=== PATIENT | female | born 1955 | race African-American/Black ===

== ENCOUNTER 2016-07-07 11:58 | Outpatient (CLI) | payer MEDICARE, MEDICAID ==
[2016-07-07] MEDS ORDERED: IOPAMIDOL-300 100 ML VIAL IVP ONE (14:46)
== END 2016-07-07 11:59 | disposition home or self-care (01) ==
DX: R16.1 Splenomegaly, not elsewhere classified (principal); J90 Pleural effusion, not elsewhere classified; K44.9 Diaphragmatic hernia without obstruction or gangrene; R51 Headache
CPT/HCPCS: 74178; Q9967

== ENCOUNTER 2016-08-25 | Outpatient (CLI) | payer MEDICARE, MEDICAID | END 2016-08-25 08:30 | disposition home or self-care (01) | DX: R06.00 Dyspnea, unspecified (principal) ==

== ENCOUNTER 2016-08-25 08:47 | Outpatient (CLI) | payer MEDICARE, MEDICAID | END 2016-08-25 08:48 | disposition home or self-care (01) | DX: Z53.9 Procedure and treatment not carried out, unspecified reason (principal) ==

== ENCOUNTER 2016-08-26 10:34 | Outpatient (CLI) | payer MEDICARE, MEDICAID | END 2016-08-26 10:35 | disposition home or self-care (01) | DX: I51.7 Cardiomegaly (principal); J90 Pleural effusion, not elsewhere classified ==

== ENCOUNTER 2016-09-27 14:45 | Outpatient (CLI) | payer MEDICARE, MEDICAID | END 2016-09-27 14:46 | disposition home or self-care (01) | DX: E78.5 Hyperlipidemia, unspecified (principal); E11.9 Type 2 diabetes mellitus without complications ==

== ENCOUNTER 2016-11-01 08:45 | Outpatient (CLI) | payer MEDICARE, MEDICAID | END 2016-11-01 09:00 | disposition home or self-care (01) | DX: R00.2 Palpitations (principal) ==

== ENCOUNTER 2016-11-01 09:29 | Outpatient (CLI) | payer MEDICARE, MEDICAID | END 2016-11-01 09:30 | disposition short-term general hospital (02) | DX: R07.9 Chest pain, unspecified (principal) | CPT/HCPCS: A0425; A0429 ==

== ENCOUNTER 2016-11-25 14:06 | Outpatient (CLI) | payer MEDICARE, MEDICAID ==
--- NOTE | 2016-11-26 14:54 | XRAY Report ---
EXAM: CHEST RADIOGRAPHY EXAM DATE: 11/25/2016 02:22 PM. CLINICAL HISTORY: Right-sided chest pain. COMPARISON: 10/22/2015. TECHNIQUE: 2 views. FINDINGS: Lungs/Pleura: Interval development of mild central congestion with small left effusion. Mediastinum: Heart and mediastinal contours are unremarkable. Other: None. IMPRESSION: Mild central congestion with small left effusion, new since 10/22/2015. [facility] Referring Provider Line: [phone] SITE ID: [id number]
--- NOTE | 2016-11-26 14:56 | XRAY Report ---
EXAM: ABDOMEN RADIOGRAPHY EXAM DATE: 11/25/2016 02:29 PM. CLINICAL HISTORY: Abdominal pain. COMPARISON: CT scan from 06/09/2014. TECHNIQUE: 1 view. FINDINGS: Bowel Gas Pattern: Within normal limits. No dilated loops. Other: None. IMPRESSION: Unremarkable exam. [facility] Referring Provider Line: [phone] SITE ID: [id number]
== END 2016-11-25 14:07 | disposition home or self-care (01) ==
LOC: DI.N 14:06
PROVIDERS: ATTEND Physician Assistant
DX: R09.89 Other specified symptoms and signs involving the circulatory and respiratory systems (principal); J90 Pleural effusion, not elsewhere classified
CPT/HCPCS: 71020; 74000

== ENCOUNTER 2016-12-08 14:02 | Outpatient (CLI) | payer MEDICARE, MEDICAID ==
--- NOTE | 2016-12-09 09:09 | XRAY Report ---
TWO-VIEW CHEST: 12/08/2016 CLINICAL INDICATION: Pleural effusion. COMPARISON: 11/25/2016 FINDINGS: Frontal and lateral views of the chest demonstrate stable cardiomegaly. Pulmonary vascula r congestion appears stable. Small left effusion is again seen. No pneumothorax. IMPRESSION: STABLE CHANGES OF MILD CONGESTIVE FAILURE. JOB #: [id number] EXT JOB #:[id number]
== END 2016-12-08 14:03 | disposition home or self-care (01) ==
LOC: DI.N 14:02
PROVIDERS: ATTEND Physician Assistant
DX: R09.89 Other specified symptoms and signs involving the circulatory and respiratory systems (principal); J90 Pleural effusion, not elsewhere classified
CPT/HCPCS: 71020

== ENCOUNTER 2016-12-15 10:42 | Outpatient (CLI) | payer MEDICARE, MEDICAID ==
[2016-12-15 11:23] LABS: CREATININE 7.5 mg/dL (0.4-1.0)
[2016-12-15] MEDS ORDERED: IOPAMIDOL-300 100 ML VIAL IVP ONE (12:09)
--- NOTE | 2016-12-15 16:11 | CT Report ---
CT CHEST WITH CONTRAST: 12/15/2016 CLINICAL INDICATION: Multiple splenic tumors, question primary lung cancer. Axial CT images of the chest were obtained with 100 mL Isovue-300 intravenously. In accordance with CT protocol optimization, one or more of the following dose reduction techniques w ere utilized for this exam: automated exposure control, adjustment of mA and/or KV based on patient size, or use of iterative reconstructive technique. COMPARISON: CT chest 06/09/2014. The heart and great vessels demonstrate mild atherosclerotic calcifications. Calcified mediastinal a nd hilar lymph nodes are present, compatible with old granulomatous disease. Trace left pleural effu jose daniel is present. No suspicious pulmonary nodule or mass lesion is seen. Changes of old granulomatou s disease is noted in the left lung. Osseous structures demonstrate degenerative changes. Limited evaluation of upper abdominal structures demonstrate multiple splenic lesions and normal adre nal glands. IMPRESSION: CHANGES OF OLD GRANULOMATOUS DISEASE. TRACE LEFT PLEURAL EFFUSION. NO SUSPICIOUS PULMO NARY NODULE OR MASS LESION. JOB #: [id number] EXT JOB #:[id number]
== END 2016-12-15 10:43 | disposition home or self-care (01) ==
LOC: LAB 10:42
PROVIDERS: ATTEND Internal Medicine Nephrology
DX: J90 Pleural effusion, not elsewhere classified (principal)
CPT/HCPCS: 36415; 71260; 82565; Q9967

== ENCOUNTER 2016-12-21 13:41 | Outpatient (CLI) | payer MEDICARE, MEDICAID ==
--- NOTE | 2016-12-22 15:52 | XRAY Report ---
CHEST, PA AND LATERAL: 12/21/2016 CLINICAL HISTORY: Pleural effusion. CLINICAL HISTORY: Pleural effusion. COMPARISON: Chest CT dated 12/15/2016. FINDINGS: Bony thorax is normal. Mild cardiomegaly is noted. Thoracic aorta is normal. Mediastinum is not widened. Pulmonary parenc hyma demonstrates mild prominence of the upper lobe pulmonary vasculature with minimal interstitial p arenchymal disease seen in the right lower lobe. Combination of findings raise concern in regard to pulmonary venous congestion/minimal congestive heart failure. Secondary consideration is minimal bro nchopneumonia. Few minor granulomatous calcifications are seen in the lung knowles. IMPRESSION: 1. MILD CARDIOMEGALY WITH SUGGESTION OF MILD PULMONARY VENOUS CONGESTION/EARLY CONGESTIVE HEART FAIL URE. SECONDARY CONSIDERATION IS MINIMAL BRONCHOPNEUMONIA. 2. MINIMAL EVIDENCE OF OLD GRANULOMATOUS DISEASE. 3. EXAMINATION IS NEGATIVE FOR PLEURAL EFFUSION. SMALL PLEURAL EFFUSIONS MAY NOT BE DEMONSTRABLE ON ROUTINE UPRIGHT PA CHEST X-RAY. IF THIS IS STILL A STRONG CLINICAL CONCERN, A LEFT CHEST ULTRASOUND COULD BE OBTAINED FOR FURTHER EVALUATION. JOB #: [id number] EXT JOB #:[id number]
== END 2016-12-21 13:42 | disposition home or self-care (01) ==
LOC: DI.N 13:41
PROVIDERS: ATTEND Physician Assistant
DX: I51.7 Cardiomegaly (principal)
CPT/HCPCS: 71020

== ENCOUNTER 2017-01-26 07:55 | Outpatient (CLI) | payer MEDICARE, MEDICAID ==
[2017-01-26 12:53] LABS: CHOLESTEROL 98 mg/dL; HDL CHOLESTEROL 48 mg/dL; LDL/HDL RATIO 0.6 (<4.4); TRIGLYCERIDES 104 mg/dL; VLDL CHOLESTEROL 21 mg/dL
== END 2017-01-26 07:56 | disposition home or self-care (01) ==
LOC: LAB.N 07:55
PROVIDERS: ATTEND Internal Medicine Cardiovascular Disease
DX: R06.02 Shortness of breath (principal); E78.00 Pure hypercholesterolemia, unspecified; I12.0 Hypertensive chronic kidney disease with stage 5 chronic kidney disease or end stage renal disease; N18.6 End stage renal disease; J90 Pleural effusion, not elsewhere classified; B19.20 Unspecified viral hepatitis C without hepatic coma
CPT/HCPCS: 36415; 80061

== ENCOUNTER 2017-03-09 11:38 | Outpatient (CLI) | payer MEDICARE, MEDICAID | END 2017-03-09 11:39 | disposition short-term general hospital (02) | LOC: EMS 11:38 | PROVIDERS: ATTEND Surgery | DX: R11.0 Nausea (principal); R51 Headache; R03.0 Elevated blood-pressure reading, without diagnosis of hypertension; Z99.2 Dependence on renal dialysis | CPT/HCPCS: A0425; A0429 ==

== ENCOUNTER 2017-08-10 08:02 | Outpatient (CLI) | payer MEDICARE, MEDICAID ==
[2017-08-10 13:25] LABS: BASOPHILS % (AUTO) 0.4 %; EOSINOPHILS # (AUTO) 0.1 10^3/uL (0.0-0.7); EOSINOPHILS % (AUTO) 1.5 %; HGB - HEMOGLOBIN 9.9 g/dL (12.0-16.0); LYMPHOCYTES # (AUTO) 0.9 10^3/uL (1.5-3.5); LYMPHOCYTES % (AUTO) 17.6 %; MEAN CORPUSCULAR HEMOGLOBIN 33.7 pg (27.0-31.0); MEAN CORPUSCULAR HGB CONC 34.4 g/dL (32.0-36.0); MEAN CORPUSCULAR VOLUME 98.1 fL (81.0-99.0); MEAN PLATELET VOLUME 9.3 fL (7.9-10.8); MONOCYTES # (AUTO) 0.4 10^3/uL (0.0-1.0); NEUTROPHILS # (AUTO) 3.6 10^3/uL (1.5-6.6); NEUTROPHILS % (AUTO) 72.5 %; PLT - PLATELET COUNT 76 10^3/uL (130-450); RED BLOOD COUNT 2.93 10^6/uL (4.20-5.40); RED CELL DISTRIBUTION WIDTH 15.9 % (12.0-15.0)
[2017-08-10 13:42] LABS: ALBUMIN 3.5 g/dL (3.2-5.5); ALBUMIN/GLOBULIN RATIO 0.8 (1.0-2.2); ALKALINE PHOSPHATASE 100 IU/L (42-121); ALT ALANINE AMINOTRANSFERASE 17 IU/L (10-60); AST ASPARTATE AMINOTRANSFERASE 20 IU/L (10-42); BILIRUBIN,TOTAL 0.7 mg/dL (0.2-1.0); BUN - BLOOD UREA NITROGEN 30 mg/dL (6-20); CALCIUM 8.8 mg/dL (8.5-10.3); CARBON DIOXIDE - CO2 29 mmol/L (21-32); CHLORIDE 98 mmol/L (101-111); CHOL/HDL RATIO 2.1 (<4.4); CHOLESTEROL 97 mg/dL; CREATININE 6.9 mg/dL (0.4-1.0); GFR - MDRD 7 (>89); GLUCOSE 159 mg/dL (70-100); HDL CHOLESTEROL 47 mg/dL; LDL CHOLESTEROL,CALCULATED 34 mg/dL; LDL/HDL RATIO 0.7 (<4.4); SODIUM 136 mmol/L (135-145); TOTAL PROTEIN 8.1 g/dL (6.7-8.2); VLDL CHOLESTEROL 16 mg/dL
[2017-08-10 14:32] LABS: HB2 TOTAL 10.2 g/dL; HEMOGLOBIN A1C 0.57 g/dL; HEMOGLOBIN A1C % 7.3 % (4.6-6.2)
== END 2017-08-10 08:03 ==
LOC: LAB.N 08:02
PROVIDERS: ATTEND Family Medicine
DX: E11.9 Type 2 diabetes mellitus without complications (principal); B19.20 Unspecified viral hepatitis C without hepatic coma; I10 Essential (primary) hypertension
CPT/HCPCS: 36415; 80053; 80061; 83036; 83721; 84443; 85025; 87522

== ENCOUNTER 2017-09-08 13:53 | Outpatient (CLI) | payer MEDICARE, MEDICAID ==
--- NOTE | 2017-09-08 15:01 | XRAY Report ---
TWO VIEW CHEST: 09/08/2017 CLINICAL INDICATION: End-stage renal disease. COMPARISON: 12/21/2016. FINDINGS: Frontal and lateral views of the chest demonstrate an enlarged cardiac silhouette. The lungs are clear. No effusion or pneumothorax is present. IMPRESSION: CARDIOMEGALY, BUT NO EVIDENCE OF ACUTE CARDIOPULMONARY DISEASE. NO EVIDENCE OF ACTIVE TUBERCULOSIS. TD: 09/08/2017 15:00
== END 2017-09-08 13:54 | disposition home or self-care (01) ==
LOC: DI 13:53
PROVIDERS: ATTEND Internal Medicine Nephrology
DX: N18.6 End stage renal disease (principal); I51.7 Cardiomegaly
CPT/HCPCS: 71046

== ENCOUNTER 2017-10-30 11:43 | Outpatient (CLI) | payer MEDICARE, MEDICAID | END 2017-10-30 11:44 | disposition critical access hospital (66) | LOC: EMS 11:43 | PROVIDERS: ATTEND Surgery | DX: T82.838A Hemorrhage due to vascular prosthetic devices, implants and grafts, initial encounter (principal) | CPT/HCPCS: A0425; A0429 ==

== ENCOUNTER 2017-10-30 12:04 | Emergency (ER) | payer MEDICARE, MEDICAID ==
--- NOTE | 2017-10-30 12:45 | ED Physician Documentation ---
History of Present Illness - Stated complaint Stated Complaint: BLEEDING FISTULA - Chief complaint Chief Complaint: Laceration - History obtained from History obtained from: Patient - History of Present Illness Timing: Today Pain level max: 0 Pain level now: 0 Improved by: clamping Worsened by: nothing - Additonal information Additional information: bleeding fistula after dialysis today. Clamp applied. No further bleeding. 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 - Present Medications Home Medications: Ambulatory Orders Medication Instructions Recorded Confirmed Furosemide [Lasix] 80 mg PO BID 11/17/12 07/31/17 Omeprazole 40 mg PO DAILY 11/17/12 07/31/17 Amlodipine Besylate 10 mg PO BID 10/30/13 07/31/17 Carvedilol 25 mg PO DAILY 10/30/13 07/31/17 Metoclopramide [Reglan] 5 mg PO Q6H PRN 10/30/13 07/31/17 Pravastatin Sodium 20 mg PO HS 10/30/13 07/31/17 Sevelamer Carbonate [Renvela] 2,400 mg PO TID 10/30/13 07/31/17 Vit B Cmplx 3/FA/Vit C/Biotin 1 each PO DAILY 10/30/13 07/31/17 [Shalini-Garcia Rx Tablet] Cinacalcet HCl [Sensipar] 30 mg PO DAILY 12/16/14 07/31/17 Famotidine 20 mg PO DAILY 12/16/14 07/31/17 Ipratropium [place] [Atrovent Hfa] 12.9 gm IH QID 01/24/17 07/31/17 Minoxidil 5 mg PO DAILY PRN 01/24/17 07/31/17 - Allergies Allergies/Adverse Reactions: Allergies Allergy/AdvReac Type Severity Reaction Status Date / Time yellow dye Allergy Unknown Headache Verified 06/09/14 21:02 - Social History Does the pt smoke?: No Smoking Status: Never smoker Does the pt drink ETOH?: No Does the pt have substance abuse?: No - Immunizations Immunizations are current?: Yes - POLST Patient has POLST: No PD ED PE NORMAL - Vitals Vital signs reviewed: Yes - General General: Alert and oriented X 3, No acute distress - Derm Derm: Warm and dry - Extremities Extremities: Other (L arm fistula with clamp in place. No active bleeding.) - Neuro Neuro: Alert and oriented X 3 Results - Vitals Vitals: Vital Signs - 24 hr 10/30/17 12:08 Temperature 36.3 C L Heart Rate 71 Respiratory 16 Rate Blood Pressure 205/84 H O2 Saturation 100 Oxygen O2 Source Simple Mask PD MEDICAL DECISION MAKING - ED course Complexity details: re-evaluated patient, considered differential, d/w patient ED course: Patient is a 62-year-old female who presents to the emergency department with a left AV fistula bleeding after dialysis. Resolved with clamping. No further bleeding in the emergency department. We will have her follow-up with her PCP for further care as needed. This document was made in part using voice recognition software. While efforts are made to proofread this document, sound alike and grammatical errors may occur. Departure - Departure Disposition: 01 Home, Self Care Clinical Impression: Hemorrhage of arteriovenous fistula Qualifiers: Encounter type: initial encounter Qualified Code(s): T82.838A - Hemorrhage due to vascular prosthetic devices, implants and grafts, initial encounter Condition: Good Instructions: ED Shunt Dialysis Fistula Bleeding Follow-Up: your,doctor as needed [Other] Comments: Return if you worsen.
[2017-10-30 13:02] VITALS: BP 211/86
== END 2017-10-30 13:08 | disposition home or self-care (01) ==
LOC: EDUNIT# → ED 12:04
DX: T82.838A Hemorrhage due to vascular prosthetic devices, implants and grafts, initial encounter (principal); I11.0 Hypertensive heart disease with heart failure; I50.9 Heart failure, unspecified; E78.00 Pure hypercholesterolemia, unspecified; E11.9 Type 2 diabetes mellitus without complications; Z99.2 Dependence on renal dialysis
CPT/HCPCS: 99283

== ENCOUNTER 2017-12-14 08:02 | Outpatient (CLI) | payer MEDICARE, MEDICAID ==
[2017-12-14 12:53] LABS: CALCIUM 9.5 mg/dL (8.5-10.3); MAGNESIUM 2.2 mg/dL (1.7-2.8)
[2017-12-14 13:09] LABS: HB2 TOTAL 9.9 g/dL; HEMOGLOBIN A1C 0.46 g/dL; HEMOGLOBIN A1C % 6.4 % (4.6-6.2)
== END 2017-12-14 08:03 | disposition home or self-care (01) ==
LOC: LAB.N 08:02
PROVIDERS: ATTEND Family Medicine
DX: E11.22 Type 2 diabetes mellitus with diabetic chronic kidney disease (principal); N18.6 End stage renal disease
CPT/HCPCS: 36415; 80048; 83036; 83735

== ENCOUNTER 2018-03-14 10:20 | Outpatient (CLI) | payer MEDICARE, MEDICAID | END 2018-03-14 10:21 | disposition critical access hospital (66) | LOC: EMS 10:20 | PROVIDERS: ATTEND Surgery | DX: R19.5 Other fecal abnormalities (principal); R53.1 Weakness | CPT/HCPCS: A0425; A0429 ==

== ENCOUNTER 2018-03-14 10:42 | Emergency (ER) | payer MEDICARE, MEDICAID ==
--- NOTE | 2018-03-14 11:31 | ED Physician Documentation ---
PD HPI GI BLEED - Stated complaint Stated Complaint: GI BLEED - Chief complaint Chief Complaint: Abd Pain - History obtained from History obtained from: Patient - History of Present Illness Timing - onset: How many days ago (2-3 days of noting some dark stools. Having some upper abd pains with eating. No vomiting. Had dialysis today and her Hgb noted to be 6, down from 9 at prior dialysis.) Timing - duration: Days (2-3) Timing - details: Gradual onset, Still present Associated symptoms: Black/tarry stool, Abdominal pain (intermittent upper abd pains). No: Vomiting, Hematemesis, BRBPR, Maroon stool, Diarrhea, Near syncope / syncope Contributing factors: No: Sick contact, Bad food, Recent antibiotics, Aspirin use, NSAID use Worsened by: Eating. No: Breathing, Palpation Similar symptoms before: Has not had sx before Recently seen: Clinic ([facility] 3 times weekly) Review of Systems Constitutional: denies: Fever Nose: denies: Rhinorrhea / runny nose, Congestion Throat: denies: Sore throat Respiratory: denies: Cough GI: reports: Abdominal Pain, Bloody / black stool. denies: Abdominal Swelling, Nausea, Vomiting, Diarrhea : denies: Dysuria, Frequency Skin: denies: Rash, Lesions Neurologic: reports: Generalized weakness. denies: Near syncope, Altered mental status, Headache Endocrine: reports: Easy bruising / bleeding. 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 - Present Medications Home Medications: Ambulatory Orders Medication Instructions Recorded Confirmed Furosemide [Lasix] 80 mg PO BID 11/17/12 02/05/18 Omeprazole 40 mg PO DAILY 11/17/12 02/05/18 Amlodipine Besylate 10 mg PO BID 10/30/13 02/05/18 Carvedilol 25 mg PO DAILY 10/30/13 02/05/18 Metoclopramide [Reglan] 5 mg PO Q6H PRN 10/30/13 02/05/18 Pravastatin Sodium 20 mg PO HS 10/30/13 02/05/18 Sevelamer Carbonate [Renvela] 2,400 mg PO TID 10/30/13 02/05/18 Vit B Comp No.3/Folic/C/Biotin 1 each PO DAILY 10/30/13 02/05/18 [Shalini-Garcia Rx Tablet] Cinacalcet HCl [Sensipar] 30 mg PO DAILY 12/16/14 02/05/18 Ipratropium [place] [Atrovent Hfa] 12.9 gm IH QID 01/24/17 02/05/18 Minoxidil 5 mg PO DAILY PRN 01/24/17 02/05/18 Darbepoetin [Aranesp] 60 mcg IVP 03/14/18 Lactulose 10 gm PO DAILY 03/14/18 03/14/18 Sucralfate 1 tab PO DAILY 03/14/18 03/14/18 - Allergies Allergies/Adverse Reactions: Allergies Allergy/AdvReac Type Severity Reaction Status Date / Time yellow dye Allergy Unknown Headache Verified 06/09/14 21:02 NSAIDS (Non-Steroidal Allergy Anaphylaxis Verified 03/14/18 10:53 Anti-Inflamma - Social History Does the pt smoke?: No Smoking Status: Never smoker Does the pt drink ETOH?: No Does the pt have substance abuse?: No - Family History Family history: reports: Non contributory - Immunizations Immunizations are current?: Yes - POLST Patient has POLST: No PD ED PE NORMAL - Vitals Vital signs reviewed: Yes - General General: Alert and oriented X 3, No acute distress, Well developed/nourished - HEENT HEENT: Moist mucous membranes, Pharynx benign - Neck Neck: Supple, no meningeal sign, No JVD - Cardiac Cardiac: RRR, No murmur - Respiratory Respiratory: Clear bilaterally - Abdomen Abdomen: Normal bowel sounds, Soft, Non distended, Other (some tender without guarding epigastric area. ) - Female Female : Deferred - Rectal Rectal: Other (soft stool in vault, dark colored and tests guiac positive. ) - Back Back: No CVA TTP - Derm Derm: Normal color, Warm and dry - Extremities Extremities: No deformity, No tenderness to palpate, Other (good thrill in dialysis fistula. ) - Neuro Neuro: Alert and oriented X 3, No motor deficit, Normal speech Results - Vitals Vitals: Vital Signs - 24 hr 03/14/18 03/14/18 03/14/18 10:49 14:02 14:16 Temperature 36.8 C 36.8 C 36.3 C L Heart Rate 77 77 79 Respiratory 20 14 20 Rate Blood Pressure 194/66 H 166/155 H 196/93 H O2 Saturation 100 03/14/18 14:35 Temperature 36.6 C Heart Rate 75 Respiratory 16 Rate Blood Pressure 202/77 H O2 Saturation 100 Oxygen O2 Source Nasal cannula - Labs Labs: Laboratory Tests 03/14/18 03/14/18 03/14/18 12:11 12:11 12:11 WBC 4.5 L RBC 1.58 L Hgb 5.2 L* Hct 15.0 L* MCV 94.5 MCH 32.8 H MCHC 34.7 RDW 19.3 H Plt Count 71 L MPV 8.7 Neut # (Auto) 3.5 Lymph # (Auto) 0.6 L [place] # (Auto) 0.3 Eos # (Auto) 0.1 Baso # (Auto) 0.0 Absolute Nucleated RBC 0.00 Nucleated RBC % 0.0 Sodium 134 L Potassium 3.6 Chloride 94 L Carbon Dioxide 29 Anion Gap 11.0 BUN 29 H Creatinine 3.6 H Estimated GFR (MDRD) 16 L Glucose 182 H Calcium 8.0 L Phosphorus Magnesium 1.8 Total Bilirubin 0.4 AST 25 ALT 20 Alkaline Phosphatase 108 Total Protein 6.7 Albumin 3.2 Globulin 3.5 Albumin/Globulin Ratio 0.9 L Lipase 55 H Blood Type AB POSITIVE Blood Type Recheck Antibody Screen NEGATIVE Crossmatch IS Only See Detail 03/14/18 03/14/18 12:11 12:49 WBC RBC Hgb Hct MCV MCH MCHC RDW Plt Count MPV Neut # (Auto) Lymph # (Auto) [place] # (Auto) Eos # (Auto) Baso # (Auto) Absolute Nucleated RBC Nucleated RBC % Sodium Potassium Chloride Carbon Dioxide Anion Gap BUN Creatinine Estimated GFR (MDRD) Glucose Calcium Phosphorus 2.1 L Magnesium Total Bilirubin AST ALT Alkaline Phosphatase Total Protein Albumin Globulin Albumin/Globulin Ratio Lipase Blood Type Blood Type Recheck AB POSITIVE Antibody Screen Crossmatch IS Only PD MEDICAL DECISION MAKING - ED course Complexity details: reviewed results (Her blood count is low and is dropped over the last few days. She does have dark colored melena stools. She has a history of some ulcers without any GI bleed in the past. She states she has chronic hepatitis C without any cirrhosis or liver inflammation. No history of varices. She did receive her dialysis today and completed the run. She will need transfusing at this time and further evaluation for the GI bleed. This will necessitate hospitalization and therefore needs to be at a facility that can accommodate the dialysis as well as GI. We will look to [place] initially and try other hospitals as needed. Her blood pressure is good here. Will initiate a little bit of fluid IV but mostly transfusion so that we do not create a fluid overload. We will give her some Protonix and antiemetic if needed.), re-evaluated patient (Blood pressure being remains good if hypertensive. Heart rate is stable. She does appear to be stable and doing well with the initial transfusion. [facility] does have space available and I talked to Dr. Muniz the hospitalist who accepts transfer.), considered differential, d/w patient - Sepsis Event Vital Signs: Vital Signs - 24 hr 03/14/18 03/14/18 03/14/18 10:49 14:02 14:16 Temperature 36.8 C 36.8 C 36.3 C L Heart Rate 77 77 79 Respiratory 20 14 20 Rate Blood Pressure 194/66 H 166/155 H 196/93 H O2 Saturation 100 03/14/18 14:35 Temperature 36.6 C Heart Rate 75 Respiratory 16 Rate Blood Pressure 202/77 H O2 Saturation 100 Oxygen O2 Source Nasal cannula Departure - Departure Disposition: 02 Transfer Acute Care Hosp Clinical Impression: Anemia due to acute blood loss, ESRD (end stage renal disease) GI bleed Qualifiers: GI bleed type/associated pathology: unspecified gastrointestinal hemorrhage type Qualified Code(s): K92.2 - Gastrointestinal hemorrhage, unspecified Hypertension Qualifiers: Hypertension type: unspecified Qualified Code(s): I10 - Essential (primary) hypertension Condition: Stable Record reviewed to determine appropriate education?: Yes
[2018-03-14 12:25] LABS: BASOPHILS % (AUTO) 0.3 %; EOSINOPHILS # (AUTO) 0.1 10^3/uL (0.0-0.7); EOSINOPHILS % (AUTO) 1.2 %; LYMPHOCYTES # (AUTO) 0.6 10^3/uL (1.5-3.5); LYMPHOCYTES % (AUTO) 13.1 %; MEAN CORPUSCULAR HEMOGLOBIN 32.8 pg (27.0-31.0); MEAN CORPUSCULAR HGB CONC 34.7 g/dL (32.0-36.0); MEAN CORPUSCULAR VOLUME 94.5 fL (81.0-99.0); MEAN PLATELET VOLUME 8.7 fL (7.9-10.8); MONOCYTES # (AUTO) 0.3 10^3/uL (0.0-1.0); MONOCYTES % (AUTO) 6.4 %; NEUTROPHILS # (AUTO) 3.5 10^3/uL (1.5-6.6); PLT - PLATELET COUNT 71 10^3/uL (130-450); RED BLOOD COUNT 1.58 10^6/uL (4.20-5.40); RED CELL DISTRIBUTION WIDTH 19.3 % (12.0-15.0); WHITE BLOOD COUNT 4.5 x10^3/uL (4.8-10.8)
[2018-03-14 12:28] LABS: HGB - HEMOGLOBIN 5.2 g/dL (12.0-16.0)
[2018-03-14] MEDS ORDERED: PANTOPRAZOLE 40 MG VIAL IVP STA (12:51)
[2018-03-14 12:52] LABS: ALBUMIN 3.2 g/dL (3.2-5.5); ALBUMIN/GLOBULIN RATIO 0.9 (1.0-2.2); BILIRUBIN,TOTAL 0.4 mg/dL (0.2-1.0); CREATININE 3.6 mg/dL (0.4-1.0); MAGNESIUM 1.8 mg/dL (1.7-2.8); TOTAL PROTEIN 6.7 g/dL (6.7-8.2)
[2018-03-14 15:44] VITALS: BP 214/72
== END 2018-03-14 16:04 | disposition short-term general hospital (02) ==
LOC: EDUNIT# → ED 10:42
DX: D62 Acute posthemorrhagic anemia (principal); I13.2 Hypertensive heart and chronic kidney disease with heart failure and with stage 5 chronic kidney disease, or end stage renal disease; I50.9 Heart failure, unspecified; E11.22 Type 2 diabetes mellitus with diabetic chronic kidney disease; N18.6 End stage renal disease; Z99.2 Dependence on renal dialysis; K75.9 Inflammatory liver disease, unspecified; E78.00 Pure hypercholesterolemia, unspecified
CPT/HCPCS: 36415; 80053; 83690; 83735; 84100; 85025; 86850; 86900; 86901; 86920; 96374; 99283; 99284; P9016

== ENCOUNTER 2018-03-14 16:04 | Outpatient (CLI) | payer MEDICARE, MEDICAID | END 2018-03-14 16:05 | disposition short-term general hospital (02) | LOC: EMS 16:04 | PROVIDERS: ATTEND Surgery | DX: K92.2 Gastrointestinal hemorrhage, unspecified (principal) | CPT/HCPCS: A0425; A0426 ==

== ENCOUNTER 2018-04-19 09:56 | Outpatient (CLI) | payer MEDICARE, MEDICAID ==
--- NOTE | 2018-04-19 14:40 | Ultrasound Report ---
Reason: HEPATITIS C, INTOLERANT TO INTERFERON,SEVERE ANEMI Procedure Date: 04/19/2018 Accession Number: [id number] / [id number] Procedure: US - Abdomen Limited CPT Code: FULL RESULT: EXAM: ABDOMEN ULTRASOUND LIMITED, RUQ EXAM DATE: 04/19/2018 11:31 AM. CLINICAL HISTORY: HEPATITIS C, INTOLERANT TO INTERFERON,SEVERE ANEMIA. COMPARISON: CT from 06/09/2014. Ultrasound from 12/24/2013 and 08/15/2017. TECHNIQUE: Real-time scanning was performed with static images obtained. FINDINGS: Liver: Mildly heterogeneous and echogenic hepatic parenchyma. No hepatic lesions. No intrahepatic ductal dilatation. The liver is not enlarged, 14.9 cm. Main portal vein flow: Hepatopetal although prominent measuring up to 16-17 oh meters. Gallbladder: Surgically absent. Biliary System: CBD measures 6-7 mm. No intrahepatic or extrahepatic ductal dilatation. Other: The visualized portions of the pancreas are unremarkable. Right kidney is markedly echogenic and measures 9.1 cm. No hydronephrosis. IMPRESSION: 1. Heterogeneous and echogenic hepatic parenchyma findings which may be related to the patient's history of hepatitis C. No hepatic lesions. 2. Status post cholecystectomy. No biliary ductal dilatation. 3. Echogenic right kidney consistent with underlying medical renal disease. [facility]
== END 2018-04-19 09:57 | disposition home or self-care (01) ==
LOC: DI 09:56
PROVIDERS: ATTEND Physician Assistant
DX: B19.20 Unspecified viral hepatitis C without hepatic coma (principal); D64.9 Anemia, unspecified; Z90.49 Acquired absence of other specified parts of digestive tract
CPT/HCPCS: 76705

== ENCOUNTER 2018-05-21 14:07 | Outpatient (CLI) | payer MEDICARE, MEDICAID ==
[2018-05-21 19:09] LABS: INR 1.2 (0.8-1.2); PT - PROTHROMBIN TIME 13.8 secs (9.9-12.6)
[2018-05-21 19:47] LABS: FERRITIN 521.5 ng/mL (11.0-306.8)
[2018-05-21 19:50] LABS: FOLATE 8.56 ng/mL (5.90 - >24.8)
[2018-05-21 19:54] LABS: % IRON SATURATION 19 % (20-50); IRON 42 ug/dL (28-170); TOTAL IRON BINDING CAPACITY 216 ug/dL (250-450); TRANSFERRIN 154 mg/dL (192-382)
[2018-05-22 13:42] LABS: HEPATITIS A AB TOTAL(IMMUNITY) REACTIVE (NON-REACTIVE); HEPATITIS B CORE AB TOTAL REACTIVE (NON-REACTIVE)
[2018-05-22 13:44] LABS: HEPATITIS B SURFACE ANTIGEN NON-REACTIVE (NON-REACTIVE)
== END 2018-05-21 14:08 | disposition home or self-care (01) ==
LOC: LAB.N 14:07
PROVIDERS: ATTEND Internal Medicine
DX: B19.20 Unspecified viral hepatitis C without hepatic coma (principal)
CPT/HCPCS: 36415; 82105; 82607; 82728; 82746; 83540; 84466; 85610; 86317; 86704; 86708; 87340; 87389; 87522; 87902

== ENCOUNTER 2018-06-28 08:44 | Outpatient (CLI) | payer MEDICARE, MEDICAID ==
[2018-06-28 12:34] LABS: BASOPHILS % (AUTO) 0.6 %; EOSINOPHILS # (AUTO) 0.1 10^3/uL (0.0-0.7); EOSINOPHILS % (AUTO) 1.1 %; HGB - HEMOGLOBIN 9.2 g/dL (12.0-16.0); LYMPHOCYTES # (AUTO) 0.7 10^3/uL (1.5-3.5); LYMPHOCYTES % (AUTO) 14.4 %; MEAN CORPUSCULAR HEMOGLOBIN 31.6 pg (27.0-31.0); MEAN CORPUSCULAR HGB CONC 34.1 g/dL (32.0-36.0); MEAN CORPUSCULAR VOLUME 92.7 fL (81.0-99.0); MEAN PLATELET VOLUME 10.2 fL (7.9-10.8); MONOCYTES # (AUTO) 0.4 10^3/uL (0.0-1.0); MONOCYTES % (AUTO) 7.5 %; NEUTROPHILS # (AUTO) 3.8 10^3/uL (1.5-6.6); NEUTROPHILS % (AUTO) 76.4 %; PLT - PLATELET COUNT 74 10^3/uL (130-450); RED BLOOD COUNT 2.92 10^6/uL (4.20-5.40); RED CELL DISTRIBUTION WIDTH 15.9 % (12.0-15.0); WHITE BLOOD COUNT 4.9 x10^3/uL (4.8-10.8)
[2018-06-28 12:39] LABS: ALBUMIN 3.7 g/dL (3.2-5.5); ALBUMIN/GLOBULIN RATIO 0.9 (1.0-2.2); ALKALINE PHOSPHATASE 224 IU/L (42-121); ALT ALANINE AMINOTRANSFERASE 19 IU/L (10-60); AST ASPARTATE AMINOTRANSFERASE 21 IU/L (10-42); BILIRUBIN,TOTAL 0.6 mg/dL (0.2-1.0); BUN - BLOOD UREA NITROGEN 32 mg/dL (6-20); CALCIUM 8.7 mg/dL (8.5-10.3); CARBON DIOXIDE - CO2 31 mmol/L (21-32); CHLORIDE 95 mmol/L (101-111); CHOL/HDL RATIO 1.9 (<4.4); CHOLESTEROL 86 mg/dL; CREATININE 6.6 mg/dL (0.4-1.0); GFR - MDRD 8 (>89); GLUCOSE 196 mg/dL (70-100); HDL CHOLESTEROL 46 mg/dL; LDL CHOLESTEROL,CALCULATED 25 mg/dL; LDL/HDL RATIO 0.5 (<4.4); SODIUM 136 mmol/L (135-145); TOTAL PROTEIN 7.7 g/dL (6.7-8.2); VLDL CHOLESTEROL 15 mg/dL
[2018-06-28 12:54] LABS: HB2 TOTAL 9.4 g/dL; HEMOGLOBIN A1C 0.57 g/dL; HEMOGLOBIN A1C % 7.7 % (4.6-6.2)
== END 2018-06-28 23:59 | disposition home or self-care (01) ==
LOC: LAB.N 08:44
PROVIDERS: ATTEND Family Medicine
DX: E11.22 Type 2 diabetes mellitus with diabetic chronic kidney disease (principal); I12.0 Hypertensive chronic kidney disease with stage 5 chronic kidney disease or end stage renal disease; Z99.2 Dependence on renal dialysis; N18.6 End stage renal disease
CPT/HCPCS: 36415; 80053; 80061; 83036; 83721; 85025

== ENCOUNTER 2018-09-05 12:24 | Outpatient (CLI) | payer MEDICARE, MEDICAID ==
--- NOTE | 2018-09-05 13:12 | XRAY Report ---
Reason: SHORTNESS OF BREATH Procedure Date: 09/05/2018 Accession Number: [id number] / [id number] Procedure: XR - Chest 2 View X-Ray CPT Code: 58115 FULL RESULT: EXAM: CHEST RADIOGRAPHY EXAM DATE: 09/05/2018 12:37 PM. CLINICAL HISTORY: shortness of breath. COMPARISON: CHEST 2 VIEW 09/08/2017 1:54 PM. TECHNIQUE: 2 views. FINDINGS: Lungs/Pleura: No focal opacities evident. No pleural effusion. No pneumothorax. Normal volumes. Mediastinum: Heart and mediastinal contours are unchanged with borderline cardiomegaly. Other: None. IMPRESSION: Stable exam with no acute airspace abnormality. [facility]
== END 2018-09-05 12:25 | disposition home or self-care (01) ==
LOC: DI 12:24
PROVIDERS: ATTEND Internal Medicine Nephrology
DX: R06.02 Shortness of breath (principal)
CPT/HCPCS: 71046

== ENCOUNTER 2018-10-11 08:00 | Outpatient (CLI) | payer MEDICARE, MEDICAID ==
[2018-10-11 12:57] LABS: HEMOGLOBIN A1C 0.63 g/dL; HEMOGLOBIN A1C % 6.6 % (4.6-6.2)
== END 2018-10-11 23:59 | disposition home or self-care (01) ==
LOC: LAB.N 08:00
PROVIDERS: ATTEND Physician Assistant Medical
DX: E11.9 Type 2 diabetes mellitus without complications (principal)
CPT/HCPCS: 36415; 83036

== ENCOUNTER 2018-12-11 08:00 | Outpatient (CLI) | payer MEDICARE, MEDICAID ==
[2018-12-11 13:16] LABS: BASOPHILS # (AUTO) 0.1 10^3/uL (0.0-0.1); EOSINOPHILS # (AUTO) 0.1 10^3/uL (0.0-0.7); EOSINOPHILS % (AUTO) 1.6 %; LYMPHOCYTES # (AUTO) 0.7 10^3/uL (1.5-3.5); LYMPHOCYTES % (AUTO) 14.2 %; MEAN CORPUSCULAR HEMOGLOBIN 30.6 pg (27.0-31.0); MEAN CORPUSCULAR HGB CONC 33.5 g/dL (32.0-36.0); MEAN CORPUSCULAR VOLUME 91.1 fL (81.0-99.0); MEAN PLATELET VOLUME 9.7 fL (7.9-10.8); MONOCYTES # (AUTO) 0.4 10^3/uL (0.0-1.0); NEUTROPHILS # (AUTO) 3.9 10^3/uL (1.5-6.6); NEUTROPHILS % (AUTO) 75.2 %; PLT - PLATELET COUNT 63 10^3/uL (130-450); RED BLOOD COUNT 3.26 10^6/uL (4.20-5.40); RED CELL DISTRIBUTION WIDTH 19.5 % (12.0-15.0); WHITE BLOOD COUNT 5.2 x10^3/uL (4.8-10.8)
[2018-12-11 13:25] LABS: ALBUMIN 3.6 g/dL (3.2-5.5); ALBUMIN/GLOBULIN RATIO 0.8 (1.0-2.2); BILIRUBIN,TOTAL 0.9 mg/dL (0.2-1.0); CALCIUM 7.9 mg/dL (8.5-10.3); CREATININE 6.5 mg/dL (0.4-1.0); TOTAL PROTEIN 8.3 g/dL (6.7-8.2)
[2018-12-13 18:36] LABS: HCV RNA QNT <1.18 NOT DETECTED Log IU/mL (NOT DETECTED); HCV RNA QUANT RT PCR <15 NOT DETECTED IU/mL (NOT DETECTED)
== END 2018-12-11 23:59 | disposition home or self-care (01) ==
LOC: LAB.N 08:00
PROVIDERS: ATTEND Internal Medicine
DX: K74.60 Unspecified cirrhosis of liver (principal); B19.20 Unspecified viral hepatitis C without hepatic coma
CPT/HCPCS: 36415; 80053; 85025; 87522

== ENCOUNTER 2019-01-10 08:24 | Outpatient (CLI) | payer MEDICARE, MEDICAID ==
--- NOTE | 2019-01-10 14:09 | Ultrasound Report ---
Reason: CIRRHOSIS OF LIVER WITHOUT MENTION OF ALCOHOL,HEPA Procedure Date: 01/10/2019 Accession Number: [id number] / [id number] Procedure: US - Abdomen Limited CPT Code: FULL RESULT: EXAM: ABDOMEN ULTRASOUND LIMITED, RUQ EXAM DATE: 01/10/2019 09:06 AM. CLINICAL HISTORY: Hepatitis C, cirrhosis. COMPARISON: ABDOMEN LIMITED 04/19/2018 10:38 AM. TECHNIQUE: Real-time scanning was performed with static images obtained. FINDINGS: Liver: The hepatic echotexture appears mildly coarsened. No definite surface nodularity or mass lesion evident. The right lobe measures 18.0 cm. Main portal vein flow: Hepatopetal. Gallbladder: Surgically absent. Biliary System: CBD measures 10 mm. Likely compensatory dilatation post cholecystectomy. No obstructing mass or stone identified. Other: The right kidney is diffusely echogenic and atrophic measuring only 6.6 cm longitudinally. No hydronephrosis evident. No ascites. IMPRESSION: 1. Mild coarsening of liver echotexture may represent early changes of cirrhosis as before. 2. No liver mass lesion. 3. Status post cholecystectomy with compensatory biliary ductal dilatation. 4. Echogenic and atrophic kidney consistent with chronic renal disease. [facility]
== END 2019-01-10 08:25 | disposition home or self-care (01) ==
LOC: DI 08:24
PROVIDERS: ATTEND Physician Assistant
DX: K74.60 Unspecified cirrhosis of liver (principal); B19.20 Unspecified viral hepatitis C without hepatic coma; N26.1 Atrophy of kidney (terminal); Z90.49 Acquired absence of other specified parts of digestive tract
CPT/HCPCS: 76705

== ENCOUNTER 2019-02-08 10:55 | Outpatient (CLI) | payer MEDICARE, MEDICAID ==
--- NOTE | 2019-02-09 23:08 | XRAY Report ---
Reason: TMJ TENDERNESS, RIGHT Procedure Date: 02/08/2019 Accession Number: [id number] / [id number] Procedure: XRN - TMJ's-Temporal Mandibular Jts CPT Code: 24444 FULL RESULT: EXAM: BILATERAL TEMPOROMANDIBULAR JOINT RADIOGRAPHY EXAM DATE: 02/08/2019 11:22 AM. CLINICAL HISTORY: TMJ TENDERNESS, RIGHT. COMPARISON: CHEST 2 VIEW 09/05/2018 12:32 PM. TECHNIQUE: 3 views including open and closed mouth. FINDINGS: Bones: Normal. No fractures or bone lesions. Temporomandibular Joints: Normal. The temporomandibular joints are normally located and symmetric, and demonstrate normal anterior translation on open mouth views. Sinuses: Normal. No opacities or fluid levels. Other: Normal. No soft tissue swelling. IMPRESSION: Normal temporomandibular joint radiography. [facility]
== END 2019-02-08 10:56 | disposition home or self-care (01) ==
LOC: DI.N 10:55
PROVIDERS: ATTEND Family Medicine
DX: M26.621 Arthralgia of right temporomandibular joint (principal)
CPT/HCPCS: 70330

== ENCOUNTER 2019-03-01 06:18 | Outpatient (CLI) | payer MEDICARE, MEDICAID | END 2019-03-01 06:19 | disposition short-term general hospital (02) | LOC: EMS 06:18 | PROVIDERS: ATTEND Surgery | DX: M79.652 Pain in left thigh (principal); M79.89 Other specified soft tissue disorders | CPT/HCPCS: A0425; A0429 ==

== ENCOUNTER 2019-03-13 06:02 | Outpatient (CLI) | payer MEDICARE, MEDICAID | END 2019-03-13 06:03 | disposition short-term general hospital (02) | LOC: EMS 06:02 | PROVIDERS: ATTEND Surgery | DX: R58 Hemorrhage, not elsewhere classified (principal) | CPT/HCPCS: A0425; A0429 ==

== ENCOUNTER 2019-04-11 08:00 | Outpatient (CLI) | payer MEDICARE, MEDICAID ==
[2019-04-11 12:57] LABS: HB2 TOTAL 9.9 g/dL; HEMOGLOBIN A1C 0.52 g/dL
== END 2019-04-11 23:59 | disposition home or self-care (01) ==
LOC: LAB.N 08:00
PROVIDERS: ATTEND Physician Assistant Medical
DX: E11.9 Type 2 diabetes mellitus without complications (principal)
CPT/HCPCS: 36415; 83036

== ENCOUNTER 2019-04-16 15:06 | Outpatient (CLI) | payer MEDICARE, MEDICAID ==
[2019-04-16 19:50] LABS: CALCIUM 8.8 mg/dL (8.5-10.3)
[2019-04-16 20:15] LABS: CREATININE 11.6 mg/dL (0.4-1.0)
== END 2019-04-16 23:59 | disposition home or self-care (01) ==
LOC: LAB.N 15:06
PROVIDERS: ATTEND Internal Medicine Nephrology
DX: N05.9 Unspecified nephritic syndrome with unspecified morphologic changes (principal)
CPT/HCPCS: 36415; 80048

== ENCOUNTER 2019-04-19 21:24 | Outpatient (CLI) | payer MEDICARE, MEDICAID | END 2019-04-19 21:25 | disposition critical access hospital (66) | LOC: EMS 21:24 | PROVIDERS: ATTEND Surgery | DX: R58 Hemorrhage, not elsewhere classified (principal); Z95.828 Presence of other vascular implants and grafts | CPT/HCPCS: A0425; A0429 ==

== ENCOUNTER 2019-04-19 21:46 | Emergency (ER) | payer MEDICARE, MEDICAID ==
--- NOTE | 2019-04-19 22:18 | ED Physician Documentation ---
History of Present Illness - Stated complaint Stated Complaint: BLEEDING FROM PORT - Chief complaint Chief Complaint: General - History obtained from History obtained from: Patient, EMS - History of Present Illness Timing: Today Pain level max: 0 Pain level now: 0 - Additonal information Additional information: Patient had a dialysis catheter placed in her left upper chest 3 days ago at [facility] in [place]. Noted bleeding on the left chest tonight. No other complaints. No fevers. No chills. Nothing makes it better or worse Review of Systems Constitutional: denies: Fever, Chills GI: denies: Vomiting, Diarrhea Skin: denies: Rash Musculoskeletal: denies: Neck pain, Back pain Neurologic: denies: Headache PD PAST MEDICAL HISTORY - Past Medical History Cardiovascular: Congestive heart failure, Hypertension, High cholesterol, Angina, Other Respiratory: Asthma Endocrine/Autoimmune: Type 2 diabetes GI: GERD, Ulcers, Hepatitis (hep C chronic without liver failure) : Dialysis HEENT: Other Psych: None Musculoskeletal: Osteoarthritis Derm: None - Past Surgical History Past Surgical History: Yes General: Cholecystectomy /[employer]: Hysterectomy - Present Medications Home Medications: Ambulatory Orders Medication Instructions Recorded Confirmed Furosemide [Lasix] 80 mg PO BID 11/17/12 02/05/18 Omeprazole 40 mg PO DAILY 11/17/12 02/05/18 Amlodipine Besylate 10 mg PO BID 10/30/13 02/05/18 Carvedilol 25 mg PO DAILY 10/30/13 02/05/18 Metoclopramide [Reglan] 5 mg PO Q6H PRN 10/30/13 02/05/18 Pravastatin Sodium 20 mg PO HS 10/30/13 02/05/18 Sevelamer Carbonate [Renvela] 2,400 mg PO TID 10/30/13 02/05/18 Vit B Comp No.3/Folic/C/Biotin 1 each PO DAILY 10/30/13 02/05/18 [Shalini-Garcia Rx Tablet] Cinacalcet HCl [Sensipar] 30 mg PO DAILY 12/16/14 02/05/18 Ipratropium [place] [Atrovent Hfa] 12.9 gm IH QID 01/24/17 02/05/18 Minoxidil 5 mg PO DAILY PRN 01/24/17 02/05/18 Darbepoetin [Aranesp] 60 mcg IVP 03/14/18 Lactulose 10 gm PO DAILY 03/14/18 03/14/18 Sucralfate 1 tab PO DAILY 03/14/18 03/14/18 - Allergies Allergies/Adverse Reactions: Allergies Allergy/AdvReac Type Severity Reaction Status Date / Time yellow dye Allergy Unknown Headache Verified 04/19/19 22:03 NSAIDS (Non-Steroidal Allergy Anaphylaxis Verified 04/19/19 22:03 Anti-Inflamma - Social History Does the pt smoke?: No Smoking Status: Never smoker Does the pt drink ETOH?: No Does the pt have substance abuse?: No - Immunizations Immunizations are current?: Yes - POLST Patient has POLST: No PD ED PE NORMAL - General General: Alert and oriented X 3, No acute distress - HEENT HEENT: Moist mucous membranes - Neck Neck: Supple, no meningeal sign - Cardiac Cardiac: RRR - Respiratory Respiratory: No respiratory distress, Clear bilaterally - Derm Derm: Warm and dry - Free text exam Free text exam: Clotted blood to the left anterior chest wall. Port is in place. No signs of infection. Results - Vitals Vitals: Vital Signs - 24 hr 04/19/19 04/20/19 04/20/19 22:00 00:31 03:20 Temperature 37.1 C Heart Rate 74 83 80 Respiratory 17 16 16 Rate Blood Pressure 189/79 H 168/67 H 148/68 H O2 Saturation 100 98 100 04/20/19 04:25 Temperature Heart Rate Respiratory 16 Rate Blood Pressure O2 Saturation Oxygen O2 Source Room air - Labs Labs: Laboratory Tests 04/20/19 04/20/19 04/20/19 01:45 01:45 01:45 WBC 5.0 RBC 2.70 L Hgb 8.4 L Hct 26.3 L MCV 97.4 MCH 31.1 H MCHC 31.9 L RDW 15.4 H Plt Count 57 L MPV 12.8 H Neut # (Auto) 3.6 Lymph # (Auto) 0.6 L [place] # (Auto) 0.7 Eos # (Auto) 0.1 Baso # (Auto) 0.0 Absolute Nucleated RBC 0.00 Nucleated RBC % 0.0 PT 15.4 H INR 1.4 H Sodium 135 Potassium 3.2 L Chloride 96 L Carbon Dioxide 28 Anion Gap 11.0 BUN 22 H Creatinine 5.5 H Estimated GFR (MDRD) 10 L Glucose 215 H Calcium 8.7 PD MEDICAL DECISION MAKING - ED course Complexity details: reviewed results, re-evaluated patient, considered differential, d/w patient ED course: I do not see any active bleeding from her port. The dressings were changed. Tolerated well. She will need to be monitored for recurrent bleeding for at least an hour. Patient was signed out to Dr. Live for recheck. If there is no further bleeding, she will be discharged home. If bleeding continues, dressing may need to be changed and further intervention taken. Patient counseled regarding signs and symptoms for which I believe and urgent re-evaluation would be necessary. Patient with good understanding of and agreement to plan and is comfortable going home at this time This document was made in part using voice recognition software. While efforts are made to proofread this document, sound alike and grammatical errors may occur. Departure - Departure Disposition: 01 Home, Self Care Clinical Impression: Bleeding from PICC line Qualifiers: Encounter type: initial encounter Qualified Code(s): T82.838A - Hemorrhage due to vascular prosthetic devices, implants and grafts, initial encounter Condition: Good Instructions: ED Shunt Dialysis Fistula Bleeding Follow-Up: ROBERT COURTNEY MD [Primary Care Provider] - Within 1 week Comments: If you are having oozing from your line site tomorrow, please return for a repeat evaluation, or go directly to [facility] to see your care team there. Return if you worsen or if you are have fainting, lightheadedness, or increased bleeding. Discharge Date/Time: 04/20/19 04:28
--- NOTE | 2019-04-19 22:47 | ED Physician Documentation ---
ED Addendum - Addendum Addendum: Patient was signed out to me by Dr. Harden, she is a 64-year-old female having oozing from a recently placed left-sided dialysis line. Plan is to follow-up oozing from the site after a weight/direct pressure is placed on the site. Direct pressure was placed for 30 minutes, when it was removed there was slow continued oozing. The weight was replaced, however a second round of direct pressure failed to control the oozing when it was removed. Labs are obtained showing a mildly elevated INR of 1.4, and a thrombocytopenia 57, however this is chronic and at patient's baseline. Given that her platelet count is above 50,000, and the ooze is very slow, I do not think a platelet transfusion will be helpful at this time. Hemoglobin is 8.4, this is just slightly below her baseline., I spoke with Dr. Mack who is covering for patient's nephrology team, he recommends a bulky dressing, and possibly a suture or other method to pull the skin close to the site to help prevent bleeding. He states with low platelets he can take several days for the bleeding to stop especially in these fracture lines. If the bleeding is continued despite these methods she may require the line to be pulled and placed on the other side. I applied some pressure to the wound site using a Steri-Strip, and a small amount of skin glue around the insertion site, this did slow down the oozing, but she did have a very slow ooze despite these measures. I discussed with patient that we can try a bulky dressing for pressure and she if the bleeding stops overnight, or we could transfer her to [facility] to be seen more quickly. She elected to discharge home with a bulky dressing in place, and if she is having continued bleeding tomorrow she will either go directly to [facility], or she will return here. If she has any lightheadedness, weakness, or increase in her bleeding, she will return to the emergency department immediately. Strict return precautions were discussed and patient was discharged home in the care of family. 04/20/19 04:27 Departure - Departure Disposition: 01 Home, Self Care Clinical Impression: Bleeding from PICC line Qualifiers: Encounter type: initial encounter Qualified Code(s): T82.838A - Hemorrhage due to vascular prosthetic devices, implants and grafts, initial encounter Condition: Good Instructions: ED Shunt Dialysis Fistula Bleeding Follow-Up: ROBERT COURTNEY MD [Primary Care Provider] - Within 1 week Comments: If you are having oozing from your line site tomorrow, please return for a repeat evaluation, or go directly to [facility] to see your care team there. Return if you worsen or if you are have fainting, lightheadedness, or increased bleeding.
[2019-04-19] MEDS ORDERED: ACETAMINOPHEN 325 MG TABLET PO STA (23:36)
[2019-04-20 01:48] LABS: BASOPHILS % (AUTO) 0.6 %; EOSINOPHILS # (AUTO) 0.1 10^3/uL (0.0-0.7); EOSINOPHILS % (AUTO) 2.2 %; HGB - HEMOGLOBIN 8.4 g/dL (12.0-16.0); LYMPHOCYTES # (AUTO) 0.6 10^3/uL (1.5-3.5); LYMPHOCYTES % (AUTO) 11.8 %; MEAN CORPUSCULAR HEMOGLOBIN 31.1 pg (27.0-31.0); MEAN CORPUSCULAR HGB CONC 31.9 g/dL (32.0-36.0); MEAN CORPUSCULAR VOLUME 97.4 fL (81.0-99.0); MEAN PLATELET VOLUME 12.8 fL (7.9-10.8); MONOCYTES # (AUTO) 0.7 10^3/uL (0.0-1.0); MONOCYTES % (AUTO) 13.2 %; NEUTROPHILS # (AUTO) 3.6 10^3/uL (1.5-6.6); NEUTROPHILS % (AUTO) 71.8 %; PLT - PLATELET COUNT 57 10^3/uL (130-450); RED CELL DISTRIBUTION WIDTH 15.4 % (12.0-15.0)
[2019-04-20 01:55] LABS: INR 1.4 (0.8-1.2); PT - PROTHROMBIN TIME 15.4 secs (9.9-12.6)
[2019-04-20 01:57] LABS: CALCIUM 8.7 mg/dL (8.5-10.3); CREATININE 5.5 mg/dL (0.4-1.0)
[2019-04-20 03:47] VITALS: BP 148/68
== END 2019-04-20 04:28 | disposition home or self-care (01) ==
LOC: EDUNIT# → ED 21:46
DX: T82.838A Hemorrhage due to vascular prosthetic devices, implants and grafts, initial encounter (principal); Y83.8 Other surgical procedures as the cause of abnormal reaction of the patient, or of later complication, without mention of misadventure at the time of the procedure; Z99.2 Dependence on renal dialysis; D69.6 Thrombocytopenia, unspecified; I11.0 Hypertensive heart disease with heart failure; I50.9 Heart failure, unspecified; E11.9 Type 2 diabetes mellitus without complications; B18.2 Chronic viral hepatitis C
CPT/HCPCS: 36415; 80048; 85025; 85610; 99283; 99284; A9270

== ENCOUNTER 2019-07-01 07:59 | Outpatient (CLI) | payer MEDICARE, MEDICAID ==
[2019-07-01 13:11] LABS: BASOPHILS % (AUTO) 0.5 %; EOSINOPHILS % (AUTO) 1.1 %; HGB - HEMOGLOBIN 12.2 g/dL (12.0-16.0); LYMPHOCYTES # (AUTO) 0.6 10^3/uL (1.5-3.5); LYMPHOCYTES % (AUTO) 17.1 %; MEAN CORPUSCULAR HEMOGLOBIN 28.9 pg (27.0-31.0); MEAN CORPUSCULAR HGB CONC 31.1 g/dL (32.0-36.0); MEAN CORPUSCULAR VOLUME 92.9 fL (81.0-99.0); MONOCYTES # (AUTO) 0.3 10^3/uL (0.0-1.0); MONOCYTES % (AUTO) 7.1 %; NEUTROPHILS # (AUTO) 2.7 10^3/uL (1.5-6.6); NEUTROPHILS % (AUTO) 74.2 %; PLT - PLATELET COUNT 54 10^3/uL (130-450); RED BLOOD COUNT 4.22 10^6/uL (4.20-5.40); RED CELL DISTRIBUTION WIDTH 16.1 % (12.0-15.0); WHITE BLOOD COUNT 3.7 x10^3/uL (4.8-10.8)
[2019-07-01 13:23] LABS: ALBUMIN 3.8 g/dL (3.2-5.5); ALBUMIN/GLOBULIN RATIO 0.8 (1.0-2.2); CALCIUM 8.9 mg/dL (8.5-10.3); CREATININE 5.3 mg/dL (0.4-1.0); TOTAL PROTEIN 8.3 g/dL (6.7-8.2)
== END 2019-07-01 23:59 | disposition home or self-care (01) ==
LOC: LAB.N 07:59
PROVIDERS: ATTEND Internal Medicine
DX: K74.60 Unspecified cirrhosis of liver (principal); B19.20 Unspecified viral hepatitis C without hepatic coma
CPT/HCPCS: 36415; 80053; 85025; 87522

== ENCOUNTER 2019-08-08 08:00 | Outpatient (CLI) | payer MEDICARE, MEDICAID ==
[2019-08-08 12:33] LABS: BASOPHILS % (AUTO) 0.7 %; EOSINOPHILS # (AUTO) 0.1 10^3/uL (0.0-0.7); EOSINOPHILS % (AUTO) 1.8 %; HGB - HEMOGLOBIN 12.3 g/dL (12.0-16.0); LYMPHOCYTES # (AUTO) 0.8 10^3/uL (1.5-3.5); LYMPHOCYTES % (AUTO) 18.2 %; MEAN CORPUSCULAR HEMOGLOBIN 27.3 pg (27.0-31.0); MEAN CORPUSCULAR HGB CONC 29.8 g/dL (32.0-36.0); MEAN CORPUSCULAR VOLUME 91.8 fL (81.0-99.0); MEAN PLATELET VOLUME 11.6 fL (7.9-10.8); MONOCYTES # (AUTO) 0.4 10^3/uL (0.0-1.0); MONOCYTES % (AUTO) 9.3 %; NEUTROPHILS # (AUTO) 3.1 10^3/uL (1.5-6.6); NEUTROPHILS % (AUTO) 69.8 %; PLT - PLATELET COUNT 52 10^3/uL (130-450); RED CELL DISTRIBUTION WIDTH 16.6 % (12.0-15.0); WHITE BLOOD COUNT 4.4 x10^3/uL (4.8-10.8)
[2019-08-08 13:02] LABS: INR 1.3 (0.8-1.2); PT - PROTHROMBIN TIME 14.4 secs (9.9-12.6)
[2019-08-08 13:06] LABS: ALBUMIN 3.9 g/dL (3.2-5.5); ALBUMIN/GLOBULIN RATIO 0.8 (1.0-2.2); CALCIUM 8.7 mg/dL (8.5-10.3); TOTAL PROTEIN 8.5 g/dL (6.7-8.2)
== END 2019-08-08 23:59 | disposition home or self-care (01) ==
LOC: LAB.N 08:00
PROVIDERS: ATTEND Internal Medicine
DX: K74.60 Unspecified cirrhosis of liver (principal)
CPT/HCPCS: 36415; 80053; 82105; 85025; 85610

== ENCOUNTER 2019-08-15 07:19 | Outpatient (CLI) | payer MEDICARE, MEDICAID ==
--- NOTE | 2019-08-15 15:08 | Ultrasound Report ---
Reason: CIRRHOSIS OF LIVER Procedure Date: 08/15/2019 Accession Number: [id number] / [id number] Procedure: US - Abdomen Limited CPT Code: Final Report FULL RESULT: EXAM: ABDOMEN ULTRASOUND LIMITED, RUQ EXAM DATE: 08/15/2019 08:13 AM. CLINICAL HISTORY: CIRRHOSIS OF LIVER. COMPARISON: ABDOMEN LIMITED 01/10/2019 8:44 AM. TECHNIQUE: Real-time scanning was performed with static images obtained. FINDINGS: Liver: Coarsened, mildly echogenic liver echotexture. No focal lesions, although the sensitivity of ultrasound is decreased in this setting. Length is 19.6 cm. Main portal vein flow: Hepatopetal. Gallbladder: Status post cholecystectomy. Biliary System: CBD measures 9 mm. No intrahepatic ductal dilatation. Other: Right kidney is atrophic and echogenic consistent with known chronic kidney disease. Visualized portions of the pancreas are unremarkable. IMPRESSION: Mildly echogenic, coarsened liver echotexture, likely consistent with known cirrhosis. RADIA
== END 2019-08-15 07:20 | disposition home or self-care (01) ==
LOC: DI 07:19
PROVIDERS: ATTEND Internal Medicine
DX: K74.60 Unspecified cirrhosis of liver (principal)
CPT/HCPCS: 76705

== ENCOUNTER 2020-01-24 15:30 | Outpatient (CLI) | payer MEDICARE, MEDICAID | END 2020-01-24 15:31 | disposition home or self-care (01) | LOC: DI 15:30 | PROVIDERS: ATTEND Physician Assistant Medical | DX: Z53.9 Procedure and treatment not carried out, unspecified reason (principal) ==

== ENCOUNTER 2020-02-13 15:48 | Outpatient (CLI) | payer MEDICARE, MEDICAID ==
--- NOTE | 2020-02-14 08:55 | XRAY Report ---
PROCEDURE: Lumbar Spine 2 View INDICATIONS: RIGHT SIDE LUMBAGO WITH SCIATICA TECHNIQUE: 3 views of the lumbar spine were acquired. COMPARISON: None. FINDINGS: Bones: 5 [id number] vertebrae are present. There is normal bony alignment. No vertebral body compression fractures. No suspicious bony lesions. Soft tissues: Overlying bowel gas pattern is normal. No suspicious soft tissue calcifications. Chol ecystectomy clips IMPRESSION: No fracture. No acute osseous lesion. If there is continued clinical concern for pathology, then MRI should be considered for further evaluation. Reviewed by: Lidia Brown MD, PhD on 02/13/2020 3:52 PM PDT Approved by: Lidia Brown MD, PhD on 02/13/2020 3:52 PM PDT Station ID: [id number]
--- NOTE | 2020-02-14 08:55 | XRAY Report ---
PROCEDURE: Hip 1 View RT INDICATIONS: RIGHT SIDE LUMBAGO WITH SCIATICA TECHNIQUE: 2 views of the right hip were acquired. COMPARISON: None FINDINGS: Bones: No fractures or dislocations. No suspicious bony lesions. The visualized pelvic ring appear s intact. Mild bilateral hip osseous hypertrophy compatible with mild osteoarthritis. Soft tissues: No suspicious soft tissue calcifications or masses. Multiple surgical clips noted in t he proximal right thigh. Vascular calcifications noted in the proximal lower extremities. IMPRESSION: 1. Mild bilateral hip osteophytic arthritis. 2. No fracture. No acute osseous lesion. If there is continued clinical concern for pathology, then a dvanced imaging (CT, MR, bone scan) should be considered for further evaluation. Reviewed by: Lidia Brown MD, PhD on 02/13/2020 3:50 PM PDT Approved by: Lidia Brown MD, PhD on 02/13/2020 3:50 PM PDT Station ID: [id number]
== END 2020-02-13 23:59 | disposition home or self-care (01) ==
LOC: DI.WCP 15:48
PROVIDERS: ATTEND Physician Assistant Medical
DX: M16.0 Bilateral primary osteoarthritis of hip (principal); M54.41 Lumbago with sciatica, right side
CPT/HCPCS: 72100

== ENCOUNTER 2020-03-17 13:29 | Outpatient (CLI) | payer MEDICARE, MEDICAID ==
[2020-03-17 14:10] LABS: INR 1.4 (0.8-1.2); PT - PROTHROMBIN TIME 15.6 secs (9.9-12.6)
[2020-03-17 14:16] LABS: ALBUMIN 3.8 g/dL (3.2-5.5); ALBUMIN/GLOBULIN RATIO 0.8 (1.0-2.2); BILIRUBIN,TOTAL 1.1 mg/dL (0.2-1.0); CALCIUM 9.5 mg/dL (8.5-10.3); CREATININE 6.2 mg/dL (0.4-1.0); TOTAL PROTEIN 8.3 g/dL (6.7-8.2)
== END 2020-03-17 13:30 | disposition home or self-care (01) ==
LOC: LAB 13:29
PROVIDERS: ATTEND Internal Medicine
DX: K74.60 Unspecified cirrhosis of liver (principal)
CPT/HCPCS: 36415; 80053; 82105; 85610

== ENCOUNTER 2020-03-30 06:21 | Outpatient (CLI) | payer MEDICARE, MEDICAID ==
--- NOTE | 2020-03-30 11:52 | Ultrasound Report ---
PROCEDURE: Abdomen Limited INDICATIONS: HEPATITIS C,CIRRHOSIS OF THE LIVER W/O MENTION OF TECHNIQUE: Real-time focused scanning was performed of the abdomen, with image documentation. COMPARISON: 08/15/2019 FINDINGS: The liver parenchyma is hyperechoic. The liver is normal size and the margin is smooth. Ma in portal vein is dilated at 17 mm. The common duct is at the upper limits of normal at 10 mm. The ga llbladder is surgically absent. Right kidney is diffusely atrophic and tissue in the right renal fossa is echogenic. No obvious cysti c masses to indicate hydronephrosis. Kidney length is about 8.2 cm. IMPRESSION: 1. No visible hepatic masses. 2. Dilated main portal vein may indicate early portal hypertension. 3. Cholecystectomy with expected biliary prominence. 4. Chronic right renal atrophy. Reviewed by: Eli Dotson MD on 03/30/2020 11:51 AM PDT Approved by: Eli Dotson MD on 03/30/2020 11:51 AM PDT Station ID: [id number]
== END 2020-03-30 06:22 | disposition home or self-care (01) ==
LOC: DI 06:21
PROVIDERS: ATTEND Internal Medicine
DX: B19.20 Unspecified viral hepatitis C without hepatic coma (principal); K74.60 Unspecified cirrhosis of liver; N26.1 Atrophy of kidney (terminal)
CPT/HCPCS: 76705

== ENCOUNTER 2020-04-14 06:40 | Outpatient (CLI) | payer MEDICARE, MEDICAID ==
[2020-04-14] MEDS ORDERED: IOVERSOL 320 100 ML VIAL IVP ONE ×2 (06:55→17:36)
[2020-04-14] MEDS ORDERED: IOVERSOL 320 50 ML VIAL ONE (06:55)
--- NOTE | 2020-04-14 15:22 | CT Report ---
PROCEDURE: Abdomen/Pelvis W INDICATIONS: ABD PAIN, LOWER CONTRAST: IV CONTRAST: Optiray 320 ml: 100 PO CONTRAST: Optiray 320 ml50 TECHNIQUE: After the administration of weight appropriate dose of intravenous contrast, 5 mm thick sections acqu ired from the diaphragms to the symphysis. 5 mm thick coronal and sagittal reformats were acquired. For radiation dose reduction, the following was used: automated exposure control, adjustment of mA and/or kV according to patient size. COMPARISON: 07/07/2016. FINDINGS: Image quality: Excellent. ABDOMEN: Lung bases: Trace right and small left bilateral pleural effusions with associated compressive and de vices. Heart size is normal. Solid organs: Liver and spleen are normal in size and enhancement. Gallbladder is surgically absent . Stable appearance of common bile duct dilatation likely related to post cholecystectomy physiologic dilatation. Intrahepatic biliary system is non dilated. Pancreas enhances normally. No adrenal nod ules. Kidneys are decreased in size with symmetric enhancement and no hydronephrosis. The spleen is enlarged as before containing numerous heterogeneously hypodense mass lesions. Scattered splenic adriana cifications as before. The spleen measures approximately the spleen measures approximately 15.7 cm in maximum dimension (craniocaudal dimension). Peritoneum and bowel: Bowel loops demonstrate normal wall thickness and caliber. No free fluid or a ir. Normal appendix. Nodes and vessels: No retroperitoneal or mesenteric adenopathy by size criteria. Aorta and inferior vena cava are normal in size. Miscellaneous: No ventral hernias. Diffuse body anasarca. PELVIS: Genitourinary: Bladder wall thickness is normal. Miscellaneous: No inguinal hernias or adenopathy. Bones: Heterogeneous appearance of the osseous structures are again noted. No focal intraosseous lesi ons identified. No acute vertebral body compression fractures. IMPRESSION: 1. Splenomegaly which appears stable to slightly enlarged heterogeneous splenic parenchyma with redem onstration of numerous splenic mass lesions. 2. Trace right and small left bilateral pleural effusions. 3. Stable appearance of heterogeneous osseous structures without focal bony lesion identified. 4. Diffuse anasarca. 5. Status post cholecystectomy. Reviewed by: Joo Billy MD on 04/14/2020 3:20 PM PDT Approved by: Joo Billy MD on 04/14/2020 3:20 PM PDT Station ID: [id number]
[2020-04-14] MEDS ORDERED: IOVERSOL 320 50 ML VIAL PO ONE (17:36)
== END 2020-04-14 06:41 | disposition home or self-care (01) ==
LOC: DI 06:40
PROVIDERS: ATTEND Internal Medicine
DX: R16.1 Splenomegaly, not elsewhere classified (principal); J90 Pleural effusion, not elsewhere classified; R60.1 Generalized edema; Z90.49 Acquired absence of other specified parts of digestive tract
CPT/HCPCS: 74177; Q9967

== ENCOUNTER 2020-04-30 14:07 | Outpatient (CLI) | payer MEDICARE, MEDICAID ==
--- NOTE | 2020-05-07 12:06 | Mammography Report ---
BILATERAL DIGITAL DIAGNOSTIC MAMMOGRAM 3D/2D: 04/30/2020 CLINICAL: Focal right breast pain. Comparison is made to exam dated: 04/04/2013 mammogram - [facility]. The tissue of both breasts is heterogeneously dense. This may lower the sensitivity of mammography. There is diffuse skin thickening and trabecular thickening throughout both breasts that is asymmetric ally worse on the right. No significant masses, calcifications, or other findings are seen in either breast. IMPRESSION: BENIGN Diffuse skin and trabecular thickening in both breasts is most likely secondary to systemic volume ov erload, and clinical correlation for causes of volume overload state are recommended. There is no mammographic evidence of malignancy. A 1 year screening mammogram is recommended. This exam was interpreted at Station ID: [id number]. NOTE: For mammograms, a report in lay terms will be sent to the patient. Approximately 15% of breast malignancies will not be visualized mammographically. In the management of a palpable breast mass, a negative mammogram must not discourage biopsy of a clinically suspicious lesion. Electronically Signed By: Samson velasquez/amalia:04/30/2020 16:21:57 ACR BI-RADS Category 2: Benign Finding(s) 3342F PARENCHYMAL PATTERN: (D) - The breast(s) demonstrate(s) heterogeneously dense fibroglandular liz hall. BI-RADS CATEGORY: (2) - 2 RECOMMENDATION: (ANNUAL) - Recommend routine annual screening mammography. [id number] 1 year screening LATERALITY: (B)
== END 2020-04-30 14:08 | disposition home or self-care (01) ==
LOC: DI 14:07
PROVIDERS: ATTEND Nurse Practitioner Family
DX: N64.4 Mastodynia (principal); N64.89 Other specified disorders of breast
CPT/HCPCS: 77066

== ENCOUNTER 2020-05-14 08:18 | Outpatient (CLI) | payer MEDICARE, MEDICAID ==
--- NOTE | 2020-05-14 15:30 | XRAY Report ---
PROCEDURE: Hip w/Pelvis 2-3V LT INDICATIONS: HIP PAIN TECHNIQUE: AP pelvis with lateral view(s) of the bilateral hip(s). COMPARISON: Right hip 2 view x-ray 02/13/2020. FINDINGS: Bones: No fractures or dislocations. Pelvic ring appears intact. No suspicious bony lesions. Mild bilateral hip osteoarthritis. Soft tissues: The visualized bowel gas pattern is normal. Atherosclerotic ossifications noted in the lower extremities bilaterally. IMPRESSION: 1. Mild bilateral hip arthritis. 2. No fracture. No acute osseous lesion. If there is continued clinical concern for pathology, then advanced imaging (CT, MR, bone scan) should be considered for further evaluation. Reviewed by: Lidia Brown MD, PhD on 05/14/2020 3:28 PM PST Approved by: Lidia Brown MD, PhD on 05/14/2020 3:28 PM PST Station ID: [id number]
--- NOTE | 2020-05-14 15:39 | XRAY Report ---
PROCEDURE: Lumbar Spine 2 View INDICATIONS: HIP PAIN TECHNIQUE: 2 views of the lumbar spine were acquired. COMPARISON: None. FINDINGS: Bones: 5 [id number] vertebrae are present. There is trace L4-L5 anterolisthesis. No vertebral body compression fractures. No suspicious bony lesions. Mild L3-L4 and L4-L5 degenerative disc disea se. Moderate L4-L5 and L5-S1 facet hypertrophy. Soft tissues: Overlying bowel gas pattern is normal. No suspicious soft tissue calcifications. IMPRESSION: 1. Multilevel mild degenerative disease. 2. Multilevel mild facet arthropathy. 3. No fracture. No acute osseous lesion. If there is continued clinical concern for pathology, then M RI should be considered for further evaluation. Reviewed by: Lidia Brown MD, PhD on 05/14/2020 3:38 PM PST Approved by: Lidia Brown MD, PhD on 05/14/2020 3:38 PM PST Station ID: [id number]
== END 2020-05-14 08:19 | disposition home or self-care (01) ==
LOC: DI 08:18
PROVIDERS: ATTEND Family Medicine
DX: M16.0 Bilateral primary osteoarthritis of hip (principal); M47.816 Spondylosis without myelopathy or radiculopathy, lumbar region; M47.817 Spondylosis without myelopathy or radiculopathy, lumbosacral region; M51.36 Other intervertebral disc degeneration, lumbar region
CPT/HCPCS: 72100

== ENCOUNTER 2020-07-07 07:53 | Outpatient (CLI) | payer MEDICARE, MEDICAID ==
[2020-07-07] MEDS ORDERED: IOVERSOL 320 100 ML VIAL IVP ONE (08:10)
[2020-07-07 09:15] LABS: CALCIUM 9.4 mg/dL (8.5-10.3)
[2020-07-07 09:22] LABS: CREATININE 7.9 mg/dL (0.4-1.0)
--- NOTE | 2020-07-07 11:28 | CT Report ---
PROCEDURE: CHEST W INDICATIONS: BREAST SWELLING, DIALYSIS STATUS CONTRAST: IV CONTRAST: Optiray 320 ml: 100 PO CONTRAST: *NO PO CONTRAST TECHNIQUE: After the administration of intravenous contrast, 5 mm thick sections acquired from the pulmonary api artemio to the posterior costophrenic angles. 7 mm thick coronal MIP reformats were acquired. For radia tion dose reduction, the following was used: automated exposure control, adjustment of mA and/or kV according to patient size. COMPARISON: CT abdomen and pelvis dated 04/14/2020, CT chest with contrast dated 12/15/2016, CT abdom en and pelvis dated 06/10/2014. FINDINGS: Image quality: Excellent. Lungs and pleura: Mild centrilobular emphysema. Groundglass opacity, left upper lobe, image 109/4, me asures approximately 1.8 cm. Mild to moderate left pleural effusion. Mild compressive atelectasis, le ft lung base. Central and peripheral airways are patent and normal in caliber. Mediastinum: Heart size is normal. No pericardial effusion. Significant interval progression of cor onary artery calcifications, now extensive. Shotty mediastinal adenopathy appears slightly progressed since 2017, most likely reactive. Calcifications are present in multiple mediastinal and hilar lymph nodes consistent with patient's history of granulomatous disease. Thoracic aorta and central pulmona ry arteries are normal in size. Esophagus is normal in caliber. No hiatal hernia. Bones and chest wall: No suspicious bony lesions. No vertebral body compression fractures. There is shotty bilateral axillary adenopathy. No supraclavicular adenopathy identified. Thyroid gland is unr emarkable as visualized. There is a stenosis of the central aspect of the right subclavian vein as w ell as severe stenosis of the right brachiocephalic vein, resulting in extensive right breast venous collaterals. There are extensive left breast venous collaterals as well. There is a left IJ central v enous catheter. There appears to be occlusion of the left subclavian vein. Abdomen: Again noted is splenomegaly with extensive splenic masses. These were present dating back to 06/10/2014. Bilateral kidneys are small and shrunken. A prominent periportal lymph node is unchanged from 2017. Remote cholecystectomy. IMPRESSION: 1. Mild centrilobular emphysema. 2. Mild to moderate left pleural effusion with mild left basilar atelectasis. 3. 1.8 cm groundglass opacity, left upper lobe. 4. Left IJ dialysis catheter in place. 5. Central right subclavian vein stenosis and stenotic right brachiocephalic vein with extensive resu ltant collaterals in the right breast 6. Chronic left subclavian vein occlusion with extensive left breast collaterals. 7. Advanced coronary artery disease. 8. Right breast edema. 9. Slight interval increase in shotty mediastinal and hilar adenopathy, likely a combination of react benita adenopathy and adenopathy secondary to chronic granulomatous disease. 10. Small, shrunken kidneys 11. Chronic splenomegaly with chronic extensive splenic masses. Comment: Recommend CT chest in 6 months to evaluate the stability of the left upper lobe groundglass opacity. Recommend clinical correlation for right breast edema and right breast skin thickening. Cons ider mammographic evaluation of the right breast if recent mammography has not been obtained. Reviewed by: Curry Hu MD on 07/07/2020 11:26 AM PST Approved by: Curry Hu MD on 07/07/2020 11:26 AM PST Station ID: [id number]
== END 2020-07-07 07:54 | disposition home or self-care (01) ==
LOC: DI 07:53
PROVIDERS: ATTEND Nurse Practitioner Family
DX: J43.2 Centrilobular emphysema (principal); J90 Pleural effusion, not elsewhere classified; J98.11 Atelectasis; R91.8 Other nonspecific abnormal finding of lung field; Z95.828 Presence of other vascular implants and grafts; I87.1 Compression of vein; I25.10 Atherosclerotic heart disease of native coronary artery without angina pectoris; R60.0 Localized edema; R59.0 Localized enlarged lymph nodes; R16.1 Splenomegaly, not elsewhere classified; Z99.2 Dependence on renal dialysis
CPT/HCPCS: 36415; 71260; 80048; Q9967

== ENCOUNTER 2020-07-29 13:02 | Outpatient (CLI) | payer MEDICARE, MEDICAID | END 2020-07-29 13:03 | disposition short-term general hospital (02) | LOC: EMS 13:02 | PROVIDERS: ATTEND Surgery | DX: R06.00 Dyspnea, unspecified (principal); R60.1 Generalized edema | CPT/HCPCS: A0425; A0427 ==

== ENCOUNTER 2020-10-20 08:00 | Outpatient (CLI) | payer MEDICARE, MEDICAID ==
[2020-10-20 13:23] LABS: BASOPHILS % (AUTO) 0.4 %; EOSINOPHILS # (AUTO) 0.1 10^3/uL (0.0-0.7); EOSINOPHILS % (AUTO) 1.7 %; HCT - HEMATOCRIT 28.8 % (37.0-47.0); HGB - HEMOGLOBIN 8.9 g/dL (12.0-16.0); LYMPHOCYTES # (AUTO) 0.8 10^3/uL (1.5-3.5); LYMPHOCYTES % (AUTO) 17.8 %; MEAN CORPUSCULAR HEMOGLOBIN 29.1 pg (27.0-31.0); MEAN CORPUSCULAR HGB CONC 30.9 g/dL (32.0-36.0); MEAN CORPUSCULAR VOLUME 94.1 fL (81.0-99.0); MEAN PLATELET VOLUME 12.3 fL (7.9-10.8); MONOCYTES # (AUTO) 0.4 10^3/uL (0.0-1.0); MONOCYTES % (AUTO) 9.3 %; NEUTROPHILS # (AUTO) 3.2 10^3/uL (1.5-6.6); NEUTROPHILS % (AUTO) 70.6 %; PLT - PLATELET COUNT 66 10^3/uL (130-450); RED BLOOD COUNT 3.06 10^6/uL (4.20-5.40); RED CELL DISTRIBUTION WIDTH 17.4 % (12.0-15.0); WHITE BLOOD COUNT 4.6 x10^3/uL (4.8-10.8)
[2020-10-20 13:52] LABS: THYROID STIMULATING HORMONE 4.54 uIU/mL (0.34-5.60)
[2020-10-20 14:04] LABS: ALBUMIN 3.9 g/dL (3.2-5.5); ALBUMIN/GLOBULIN RATIO 0.9 (1.0-2.2); ALKALINE PHOSPHATASE 63 IU/L (42-121); ALT ALANINE AMINOTRANSFERASE 13 IU/L (10-60); AST ASPARTATE AMINOTRANSFERASE 22 IU/L (10-42); BILIRUBIN,TOTAL 0.9 mg/dL (0.2-1.0); BUN - BLOOD UREA NITROGEN 42 mg/dL (6-20); CALCIUM 9.7 mg/dL (8.5-10.3); CARBON DIOXIDE - CO2 30 mmol/L (21-32); CHLORIDE 94 mmol/L (101-111); CHOL/HDL RATIO 2.3 (<4.4); CHOLESTEROL 122 mg/dL; GFR - MDRD 6 (>89); GLUCOSE 149 mg/dL (70-100); HDL CHOLESTEROL 54 mg/dL; LDL CHOLESTEROL,CALCULATED 56 mg/dL; POTASSIUM 4.4 mmol/L (3.5-5.0); SODIUM 135 mmol/L (135-145); TOTAL PROTEIN 8.2 g/dL (6.7-8.2); TRIGLYCERIDES 59 mg/dL; VLDL CHOLESTEROL 12 mg/dL
[2020-10-20 14:09] LABS: CREATININE 7.8 mg/dL (0.4-1.0)
[2020-10-20 14:30] LABS: ESTIMATED AVERAGE GLUCOSE 148 mg/dL (70-100); HEMOGLOBIN A1c% 6.8 % (4.27-6.07)
== END 2020-10-20 23:59 | disposition home or self-care (01) ==
LOC: LAB.WCP 08:00
PROVIDERS: ATTEND Nurse Practitioner Family
DX: E11.22 Type 2 diabetes mellitus with diabetic chronic kidney disease (principal); I12.0 Hypertensive chronic kidney disease with stage 5 chronic kidney disease or end stage renal disease; N18.6 End stage renal disease; Z99.2 Dependence on renal dialysis
CPT/HCPCS: 36415; 80053; 80061; 83036; 83721; 84443; 85025

== ENCOUNTER 2021-02-03 10:56 | Outpatient (CLI) | payer MEDICARE, MEDICAID | END 2021-02-03 10:57 | disposition critical access hospital (66) | LOC: EMS 10:56 | DX: K92.1 Melena (principal); R53.1 Weakness | CPT/HCPCS: A0425; A0429 ==

== ENCOUNTER 2021-02-03 11:16 | Emergency (ER) | payer MEDICARE, MEDICAID ==
[2021-02-03 11:42] LABS: BASOPHILS % (AUTO) 0.4 %; EOSINOPHILS % (AUTO) 0.6 %; LYMPHOCYTES # (AUTO) 0.5 10^3/uL (1.5-3.5); LYMPHOCYTES % (AUTO) 10.3 %; MEAN CORPUSCULAR HEMOGLOBIN 30.5 pg (27.0-31.0); MEAN CORPUSCULAR HGB CONC 32.8 g/dL (32.0-36.0); MEAN PLATELET VOLUME 11.7 fL (7.9-10.8); MONOCYTES # (AUTO) 0.4 10^3/uL (0.0-1.0); NEUTROPHILS # (AUTO) 4.1 10^3/uL (1.5-6.6); NEUTROPHILS % (AUTO) 80.5 %; PLT - PLATELET COUNT 55 10^3/uL (130-450); RED BLOOD COUNT 1.87 10^6/uL (4.20-5.40); RED CELL DISTRIBUTION WIDTH 16.2 % (12.0-15.0)
[2021-02-03 11:46] LABS: HCT - HEMATOCRIT 17.4 % (37.0-47.0); HGB - HEMOGLOBIN 5.7 g/dL (12.0-16.0)
[2021-02-03 11:47] LABS: SLIDE REVIEW? Indicated
[2021-02-03 12:07] LABS: PLATELET ESTIMATE, MANUAL DECREASED (<130,000) (NORMAL); PLATELET MORPHOLOGY NORMAL APPEARANCE (NORMAL)
[2021-02-03 12:08] LABS: RBC MORPHOLOGY (MULTIPLE) 3+ HYPOCHROMASIA (NORMAL)
[2021-02-03 12:11] LABS: ALBUMIN 3.6 g/dL (3.2-5.5); BILIRUBIN,TOTAL 0.7 mg/dL (0.2-1.0); CALCIUM 8.7 mg/dL (8.5-10.3); CREATININE 6.1 mg/dL (0.4-1.0); POTASSIUM 3.6 mmol/L (3.5-5.0); TOTAL PROTEIN 7.3 g/dL (6.7-8.2)
[2021-02-03] MEDS ORDERED: PANTOPRAZOLE 40 MG VIAL IVP STA (12:11)
--- NOTE | 2021-02-03 12:12 | ED Physician Documentation ---
History of Present Illness - Stated complaint Stated Complaint: HYPOTENSIVE - Chief complaint Chief Complaint: General - History obtained from History obtained from: Patient - Additonal information Additional information: 66-year-old woman has been on dialysis for the better part of 10 years had an upper endoscopy done in [place] on December 20. She had 3 polyps removed with benign pathology. Since then she has been having dark and tarry stools and her blood counts have been decreasing at dialysis when they have been checking it. Today became reportedly hypotensive. Denies significant abdominal pain. 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 HEENT: Other Psych: None Musculoskeletal: Osteoarthritis Derm: None - Past Surgical History Past Surgical History: Yes General: Cholecystectomy /ANIMAL EVISCERATOR: Hysterectomy - Present Medications Home Medications: Ambulatory Orders Medication Instructions Recorded Confirmed Omeprazole 40 mg PO DAILY 11/17/12 03/17/20 Amlodipine Besylate 10 mg PO BID 10/30/13 03/17/20 Carvedilol 25 mg PO BID 10/30/13 03/17/20 Metoclopramide [Reglan] 5 mg PO Q6H PRN 10/30/13 03/17/20 Ipratropium [place] [Atrovent Hfa] 12.9 gm IH QID 01/24/17 03/17/20 minoxidiL [Minoxidil] 5 mg PO DAILY PRN 01/24/17 03/17/20 Darbepoetin [Aranesp] 60 mcg IVP 03/14/18 Calcium Acetate [Phoslo] 667 mg PO BID 03/17/20 03/17/20 Famotidine 20 mg PO DAILY 03/17/20 03/17/20 Folic Acid 0.8 mg PO DAILY 03/17/20 03/17/20 Folic Acid/Vit B Complex and C 800 mcg PO DAILY 03/17/20 03/17/20 [Dialyvite 800 Chewable Wafer] Glipizide [Glipizide ER] 5 mg PO DAILY 03/17/20 03/17/20 Spironolactone 100 mg PO DAILY 03/17/20 03/17/20 - Allergies Allergies/Adverse Reactions: Allergies Allergy/AdvReac Type Severity Reaction Status Date / Time yellow dye Allergy Unknown Headache Verified 02/03/21 11:39 NSAIDS (Non-Steroidal Allergy Anaphylaxis Verified 02/03/21 11:39 Anti-Inflamma - Social History Does the pt smoke?: No Smoking Status: Never smoker Does the pt drink ETOH?: No Does the pt have substance abuse?: No - Immunizations Immunizations are current?: Yes - POLST Patient has POLST: No PD ED PE NORMAL - Vitals Vital signs reviewed: Yes - General General: Alert and oriented X 3, No acute distress - HEENT HEENT: PERRL, EOMI - Neck Neck: Supple, no meningeal sign, No bony TTP - Cardiac Cardiac: RRR, No murmur - Respiratory Respiratory: No respiratory distress, Clear bilaterally - Abdomen Abdomen: Normal bowel sounds, Soft, Non tender - Back Back: No CVA TTP, No spinal TTP - Derm Derm: Normal color, Warm and dry - Extremities Extremities: No edema, No calf tenderness / cord - Neuro Neuro: Alert and oriented X 3, Normal speech Results - Vitals Vitals: Vital Signs - 24 hr 02/03/21 02/03/21 02/03/21 11:28 12:26 14:07 Temperature 36.7 C 36.6 C Heart Rate 67 72 72 Respiratory 18 12 14 Rate Blood Pressure 196/87 H 196/87 H 212/78 H O2 Saturation 100 100 100 02/03/21 02/03/21 02/03/21 14:21 14:30 14:45 Temperature 37.0 C 36.8 C 36.6 C Heart Rate 72 70 69 Respiratory 17 14 13 Rate Blood Pressure 213/68 H 219/67 H 217/73 H O2 Saturation 02/03/21 02/03/21 16:00 17:20 Temperature 36.4 C L Heart Rate 74 73 Respiratory 18 15 Rate Blood Pressure 235/85 H 254/89 H O2 Saturation 100 Oxygen O2 Source Room air - Labs Labs: Laboratory Tests 02/03/21 02/03/21 02/03/21 11:35 11:35 11:35 WBC 5.0 RBC 1.87 L Hgb 5.7 L* Hct 17.4 L* MCV 93.0 MCH 30.5 MCHC 32.8 RDW 16.2 H Plt Count 55 L MPV 11.7 H Neut # (Auto) 4.1 Lymph # (Auto) 0.5 L [place] # (Auto) 0.4 Eos # (Auto) 0.0 Baso # (Auto) 0.0 Absolute Nucleated RBC 0.00 Nucleated RBC % 0.0 Manual Slide Review Indicated Platelet Estimate DECREASED (<130,000) Platelet Morphology NORMAL APPEARANCE RBC Morph Micro Appear 3+ HYPOCHROMASIA Sodium 130 L Potassium 3.6 Chloride 89 L Carbon Dioxide 29 Anion Gap 12.0 BUN 62 H Creatinine 6.1 H Estimated GFR (MDRD) 8 L Glucose 184 H Lactic Acid 0.9 Calcium 8.7 Total Bilirubin 0.7 AST 22 ALT 15 Alkaline Phosphatase 59 Total Protein 7.3 Albumin 3.6 Globulin 3.7 Albumin/Globulin Ratio 1.0 Nasal Adenovirus (PCR) Nasal B. parapertussis DNA (PCR) Nasal Coronavir 229E PCR Nasal Coronavir HKU1 PCR Nasal Coronavir NL63 PCR Nasal Coronavir OC43 PCR Nasal Enterovir/Rhinovir PCR Nasal Influenza B PCR Nasal Influenza A PCR Nasal Parainfluen 1 PCR Nasal Parainfluen 2 PCR Nasal Parainfluen 3 PCR Nasal Parainfluen 4 PCR Nasal RSV (PCR) Nasal B.pertussis DNA PCR Nasal C.pneumoniae (PCR) Connor Human Metapneumo PCR Nasal M.pneumoniae (PCR) Nasal SARS-CoV-2 (PCR) Blood Type Antibody Screen Crossmatch IS Only 02/03/21 02/03/21 12:10 12:38 WBC RBC Hgb Hct MCV MCH MCHC RDW Plt Count MPV Neut # (Auto) Lymph # (Auto) [place] # (Auto) Eos # (Auto) Baso # (Auto) Absolute Nucleated RBC Nucleated RBC % Manual Slide Review Platelet Estimate Platelet Morphology RBC Morph Micro Appear Sodium Potassium Chloride Carbon Dioxide Anion Gap BUN Creatinine Estimated GFR (MDRD) Glucose Lactic Acid Calcium Total Bilirubin AST ALT Alkaline Phosphatase Total Protein Albumin Globulin Albumin/Globulin Ratio Nasal Adenovirus (PCR) NOT DETECTED Nasal B. parapertussis DNA (PCR) NOT DETECTED Nasal Coronavir 229E PCR NOT DETECTED Nasal Coronavir HKU1 PCR NOT DETECTED Nasal Coronavir NL63 PCR NOT DETECTED Nasal Coronavir OC43 PCR NOT DETECTED Nasal Enterovir/Rhinovir PCR NOT DETECTED Nasal Influenza B PCR NOT DETECTED Nasal Influenza A PCR NOT DETECTED Nasal Parainfluen 1 PCR NOT DETECTED Nasal Parainfluen 2 PCR NOT DETECTED Nasal Parainfluen 3 PCR NOT DETECTED Nasal Parainfluen 4 PCR NOT DETECTED Nasal RSV (PCR) NOT DETECTED Nasal B.pertussis DNA PCR NOT DETECTED Nasal C.pneumoniae (PCR) NOT DETECTED Connor Human Metapneumo PCR NOT DETECTED Nasal M.pneumoniae (PCR) NOT DETECTED Nasal SARS-CoV-2 (PCR) NOT DETECTED Blood Type AB POSITIVE Antibody Screen NEGATIVE Crossmatch IS Only See Detail PD MEDICAL DECISION MAKING - ED course ED course: 66-year-old woman on dialysis has an upper GI bleed, likely related to persistent bleeding from biopsy sites but other causes of GI bleed are possible. She was difficult for IV access and I personally placed a 20-gauge IV in the left forearm using real-time ultrasound guidance which stressed flushed and marcellus well. [facility] was called for transfer given the acuity and need for dialysis. Given her comorbidities and need for dialysis I discussed the case by phone with ABH[facility] in [facility], Dr. Morales at 3 PM. Defers to the hospitalist there for admission. I have notified that it will be a significant delay until bed availability. Subsequently graciously accepted by Dr. Wade to [facility] at 4:18 PM. [place] are completed. She is stable for transport. Departure - Departure Disposition: 02 Transfer Acute Care Hosp Clinical Impression: ESRD (end stage renal disease), Anemia due to acute blood loss GI bleed Qualifiers: GI bleed type/associated pathology: unspecified gastrointestinal hemorrhage type Qualified Code(s): K92.2 - Gastrointestinal hemorrhage, unspecified Condition: Serious
[2021-02-03 13:59] LABS: B. PARAPERTUSSIS- RESP PCR PAN NOT DETECTED; B. PERTUSSIS- RESP PCR PANEL NOT DETECTED; C. PNEUMONIAE- RESP PCR PANEL NOT DETECTED; CORONAVIRUS 229E-RESP PCR NOT DETECTED; CORONAVIRUS HKU1-RESP PCR NOT DETECTED; CORONAVIRUS NL63-RESP PCR NOT DETECTED; CORONAVIRUS OC43-RESP PCR NOT DETECTED; HUMAN METAPNEUMOVIRUS NOT DETECTED; INFLUENZA A- RESP PCR PANEL NOT DETECTED; INFLUENZA B - RESP PCR PANEL NOT DETECTED; M. PNEUMONIAE- RESP PCR PANEL NOT DETECTED; PARAINFLUENZA VIRUS 1 NOT DETECTED; PARAINFLUENZA VIRUS 2 NOT DETECTED; PARAINFLUENZA VIRUS 3 NOT DETECTED; PARAINFLUENZA VIRUS 4 NOT DETECTED; RHINOVIRUS/ENTEROVIRUS NOT DETECTED; RSV- RESP PCR PANEL NOT DETECTED; SARS-CoV-2 -RESP PCR PANEL NOT DETECTED
[2021-02-03] MEDS ORDERED: LIDOCAINE OINTMENT 5% 35.44 GM TUBE TOP STA (16:02)
[2021-02-03] MEDS ORDERED: ACETAMINOPHEN 325 MG TABLET PO STA (16:14)
[2021-02-03 18:54] VITALS: BP 245/79
== END 2021-02-03 19:40 | disposition short-term general hospital (02) ==
LOC: EDUNIT# → ED 11:16
DX: K92.2 Gastrointestinal hemorrhage, unspecified (principal); D62 Acute posthemorrhagic anemia; E11.22 Type 2 diabetes mellitus with diabetic chronic kidney disease; I13.2 Hypertensive heart and chronic kidney disease with heart failure and with stage 5 chronic kidney disease, or end stage renal disease; N18.6 End stage renal disease; I50.9 Heart failure, unspecified; Z99.2 Dependence on renal dialysis; Z20.822 Contact with and (suspected) exposure to COVID-19
CPT/HCPCS: 36415; 36430; 80053; 83605; 85025; 86850; 86900; 86901; 86920; 87631; 96374; 99284; 99285; A9270; P9016; 0202U

== ENCOUNTER 2021-03-16 08:00 | Outpatient (CLI) | payer MEDICARE, MEDICAID ==
[2021-03-16 13:03] LABS: ESTIMATED AVERAGE GLUCOSE 151 mg/dL (70-100); HEMOGLOBIN A1c% 6.9 % (4.27-6.07)
== END 2021-03-16 23:59 | disposition home or self-care (01) ==
LOC: LAB.S 08:00
PROVIDERS: ATTEND Nurse Practitioner
DX: E11.9 Type 2 diabetes mellitus without complications (principal)
CPT/HCPCS: 36415; 83036

== ENCOUNTER 2021-08-30 13:01 | Emergency (ER) | payer MEDICARE, MEDICAID ==
[2021-08-30] MEDS ORDERED: IPRATROPIUM/ALBUTEROL 3 ML NEB INH STA (13:41)
--- NOTE | 2021-08-30 14:02 | ED Physician Documentation ---
History of Present Illness - Stated complaint Stated Complaint: HEAD PX/COUGH - Chief complaint Chief Complaint: General - History obtained from History obtained from: Patient - Additonal information Additional information: The patient comes to the emergency department chief complaint of "wheezing and cough" on and off for the past 1 to 2 weeks. She states that she has not had any fevers or chills. She is normally on oxygen at home, because "my oxygen gets low" but cannot elaborate as to the underlying condition. She states she normally takes about 3 L of oxygen per nasal cannula and has not had an increased need. She states she is not a smoker. She does not use any inhalers or nebulizer treatments at home. No known cardiac disorders. The patient has a history of diabetes and end-stage renal disease on hemodialysis, and came straight here from dialysis. She states she had a full dialysis treatment this morning and is on a Monday schedule. The patient states that her cough is intermittent and she does not have it every day. She has not been coughing anything up. No sick contacts that she knows of. She is not vaccinated for Covid. Patient denies any swelling in her legs. No chest pain. No abdominal pain or nausea. No other complaints at this time. Review of Systems Ten Systems: 10 systems reviewed and negative Constitutional: reports: Reviewed and negative Eyes: reports: Reviewed and negative Ears: reports: Reviewed and negative Nose: reports: Reviewed and negative Throat: reports: Reviewed and negative Cardiac: reports: Reviewed and negative Respiratory: reports: Dyspnea, Cough GI: reports: Reviewed and negative : reports: Reviewed and negative Skin: reports: Reviewed and negative Musculoskeletal: reports: Reviewed and negative Neurologic: reports: Reviewed and negative Psychiatric: reports: Reviewed and negative Endocrine: reports: Reviewed and negative Immunocompromised: reports: Reviewed and negative PD PAST MEDICAL HISTORY - Past Medical History Past Medical History: Yes Cardiovascular: Congestive heart failure, Hypertension, High cholesterol, Angina, Other Respiratory: Asthma Neuro: None Endocrine/Autoimmune: Type 2 diabetes GI: GERD, Ulcers, Hepatitis 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 : Dialysis HEENT: Other Psych: None Musculoskeletal: Osteoarthritis Derm: None - Past Surgical History Past Surgical History: Yes General: Cholecystectomy /CORRUGATOR HELPER: Hysterectomy - Present Medications Home Medications: Ambulatory Orders Medication Instructions Recorded Confirmed Omeprazole 40 mg PO DAILY 11/17/12 03/17/20 Amlodipine Besylate 10 mg PO BID 10/30/13 03/17/20 Carvedilol 25 mg PO BID 10/30/13 03/17/20 Metoclopramide [Reglan] 5 mg PO Q6H PRN 10/30/13 03/17/20 Ipratropium [place] [Atrovent Hfa] 12.9 gm IH QID 01/24/17 03/17/20 minoxidiL [Minoxidil] 5 mg PO DAILY PRN 01/24/17 03/17/20 Darbepoetin [Aranesp] 60 mcg IVP 03/14/18 Calcium Acetate [Phoslo] 667 mg PO BID 03/17/20 03/17/20 Famotidine 20 mg PO DAILY 03/17/20 03/17/20 Folic Acid 0.8 mg PO DAILY 03/17/20 03/17/20 Folic Acid/Vit B Complex and C 800 mcg PO DAILY 03/17/20 03/17/20 [Dialyvite 800 Chewable Wafer] Glipizide [Glipizide ER] 5 mg PO DAILY 03/17/20 03/17/20 Spironolactone 100 mg PO DAILY 03/17/20 03/17/20 - Allergies Allergies/Adverse Reactions: Allergies Allergy/AdvReac Type Severity Reaction Status Date / Time yellow dye Allergy Unknown Headache Verified 08/30/21 13:04 NSAIDS (Non-Steroidal Allergy Anaphylaxis Verified 08/30/21 13:04 Anti-Inflamma - Social History Does the pt smoke?: No Smoking Status: Never smoker Does the pt drink ETOH?: No Does the pt have substance abuse?: No - Immunizations Immunizations are current?: Yes - POLST Patient has POLST: No PD ED PE NORMAL - Vitals Vital signs reviewed: Yes - General General: Alert and oriented X 3, No acute distress, Well developed/nourished, Other (Chronically ill-appearing female, otherwise in no apparent distress.) - HEENT HEENT: Atraumatic, PERRL, EOMI, Moist mucous membranes - Cardiac Cardiac: RRR, No murmur, Strong equal pulses - Respiratory Respiratory: No respiratory distress, Other (Upper airway wheeze, isolated, with otherwise clear lungs. Respirations mildly labored. No cough during examination) - Abdomen Abdomen: Soft, Non tender, Non distended - Derm Derm: Normal color, Warm and dry, No rash - Extremities Extremities: No deformity, No edema - Neuro Neuro: Alert and oriented X 3, registered dental hygienist 2-12 intact, Normal speech - Psych Psych: Normal mood, Normal affect Results - Vitals Vitals: Vital Signs - 24 hr 08/30/21 08/30/21 08/30/21 13:04 14:01 15:11 Temperature 37.4 C Heart Rate 92 90 89 Respiratory 16 20 20 Rate Blood Pressure 180/90 H 233/76 H O2 Saturation 97 95 08/30/21 16:49 Temperature Heart Rate 67 Respiratory 26 H Rate Blood Pressure 211/91 H O2 Saturation 97 Oxygen O2 Source Nasal cannula - Labs Labs: Laboratory Tests 08/30/21 08/30/21 08/30/21 13:41 14:13 14:13 WBC 4.0 L RBC 3.08 L Hgb 8.6 L Hct 27.1 L MCV 88.0 MCH 27.9 MCHC 31.7 L RDW 16.2 H Plt Count 52 L MPV 10.6 Neut # (Auto) 3.4 Lymph # (Auto) 0.3 L [place] # (Auto) 0.2 Eos # (Auto) 0.0 Baso # (Auto) 0.0 Absolute Nucleated RBC 0.00 Nucleated RBC % 0.0 Sodium 128 L Potassium 3.7 Chloride 88 L Carbon Dioxide 29 Anion Gap 11.0 BUN 20 Creatinine 4.9 H Estimated GFR (MDRD) 11 L Glucose 260 H Calcium 8.3 L Total Bilirubin 1.2 H AST 34 ALT 14 Alkaline Phosphatase 46 Total Protein 8.1 Albumin 3.3 Globulin 4.8 H Albumin/Globulin Ratio 0.7 L Lipase 43 Nasal Adenovirus (PCR) NOT DETECTED Nasal B. parapertussis DNA (PCR) NOT DETECTED Nasal Coronavir 229E PCR NOT DETECTED Nasal Coronavir HKU1 PCR NOT DETECTED Nasal Coronavir NL63 PCR NOT DETECTED Nasal Coronavir OC43 PCR NOT DETECTED Nasal Enterovir/Rhinovir PCR NOT DETECTED Nasal Influenza B PCR NOT DETECTED Nasal Influenza A PCR NOT DETECTED Nasal Parainfluen 1 PCR NOT DETECTED Nasal Parainfluen 2 PCR NOT DETECTED Nasal Parainfluen 3 PCR NOT DETECTED Nasal Parainfluen 4 PCR NOT DETECTED Nasal RSV (PCR) NOT DETECTED Nasal B.pertussis DNA PCR NOT DETECTED Nasal C.pneumoniae (PCR) NOT DETECTED [place] Human Metapneumo PCR NOT DETECTED Nasal M.pneumoniae (PCR) NOT DETECTED Nasal SARS-CoV-2 (PCR) DETECTED A - Rads (name of study) chest XR Radiology: Final report received, EMP read indepedently, See rad report (Suggestive of CHF) PD MEDICAL DECISION MAKING - ED course Complexity details: reviewed results, re-evaluated patient, considered differential, d/w patient ED course: The patient was worked up with labs and chest x-ray. The patient's laboratory studies showed renal failure, which was already known. Her chest x-ray showed some findings consistent with CHF, though given that the patient had just had dialysis immediately prior to coming to the emergency department, I suspected that quite a bit of this fluid would redistribute over the next 24 hours, following the dialysis treatment. The patient was found to be positive for COVID. She is afebrile in the emergency department and actually fairly good oxygen saturation on her baseline oxygen requirement, and was in no distress. Additionally, her symptoms had not been severe, and I felt she was stable for discharge home. We have discussed the need to continue getting dialysis on schedule, and the usual indications for return. Departure - Departure Disposition: 01 Home, Self Care Clinical Impression: COVID Renal failure Qualifiers: Renal failure chronicity: chronic Chronic kidney disease stage: on chronic dialysis Qualified Code(s): N18.6 - End stage renal disease Condition: Stable Instructions: ED Dialysis Hemo, ED Viral Syndrome Comments: You do not have pneumonia or any evidence of a bacterial infection, but your Covid test was positive. As with any viral illness, for the most part, your body will have to fight this off on its own. If you feel that your breathing is getting progressively worse to the point where you are struggling at home, then you should come back and be reevaluated. Otherwise, you should continue to get your dialysis but otherwise, please quarantine for the next couple of weeks or until your symptoms resolve. You do appear to have a little bit of fluid in your lungs, which does not follow the typical pattern of Covid findings. It is most likely is secondary to both the mild congestive heart failure that you have and your end-stage renal disease. However, since you have just gotten dialysis, this should redistribute back into your bloodstream, and you should be feeling better as this happens. If you continue to feel that the dialysis is not quite getting enough fluid off, then you need to talk to your kidney specialist about having a little extra fluid taken off at dialysis.
[2021-08-30 14:17] LABS: BASOPHILS % (AUTO) 0.3 %; HCT - HEMATOCRIT 27.1 % (37.0-47.0); HGB - HEMOGLOBIN 8.6 g/dL (12.0-16.0); LYMPHOCYTES # (AUTO) 0.3 10^3/uL (1.5-3.5); LYMPHOCYTES % (AUTO) 8.3 %; MEAN CORPUSCULAR HEMOGLOBIN 27.9 pg (27.0-31.0); MEAN CORPUSCULAR HGB CONC 31.7 g/dL (32.0-36.0); MEAN PLATELET VOLUME 10.6 fL (7.9-10.8); MONOCYTES # (AUTO) 0.2 10^3/uL (0.0-1.0); MONOCYTES % (AUTO) 5.5 %; NEUTROPHILS # (AUTO) 3.4 10^3/uL (1.5-6.6); NEUTROPHILS % (AUTO) 85.4 %; PLT - PLATELET COUNT 52 10^3/uL (130-450); RED BLOOD COUNT 3.08 10^6/uL (4.20-5.40); RED CELL DISTRIBUTION WIDTH 16.2 % (12.0-15.0)
[2021-08-30 14:31] LABS: ALBUMIN 3.3 g/dL (3.2-5.5); ALBUMIN/GLOBULIN RATIO 0.7 (1.0-2.2); BILIRUBIN,TOTAL 1.2 mg/dL (0.2-1.0); CALCIUM 8.3 mg/dL (8.5-10.3); CREATININE 4.9 mg/dL (0.4-1.0); POTASSIUM 3.7 mmol/L (3.5-5.0); TOTAL PROTEIN 8.1 g/dL (6.7-8.2)
--- NOTE | 2021-08-30 14:36 | XRAY Report ---
PROCEDURE: Chest 1 View X-Ray INDICATIONS: chest pain TECHNIQUE: One view of the chest was acquired. COMPARISON: 09/05/2018 FINDINGS: Surgical changes and devices: Cholecystectomy clips seen. Lungs and pleura: There is diffuse interstitial thickening bilaterally, perihilar opacities particula rly in the perihilar region. Opacity at both lung bases, left worse than right, likely small bilatera l effusions. No pneumothorax. Mediastinum: There is central vascular and diffuse interstitial congestion. Cardiomediastinal contour is prominent. Bones and chest wall: No suspicious bony lesions. Overlying soft tissues appear unremarkable. IMPRESSION: 1. Diffuse interstitial and central vascular congestion with perihilar opacities most suggestive of C HF. 2. Interval cardiomegaly since the previous study. Reviewed by: Eli Dotson MD on 08/30/2021 2:35 PM PST Approved by: Eli Dotson MD on 08/30/2021 2:35 PM PST Station ID: [id number]
[2021-08-30 15:07] LABS: B. PARAPERTUSSIS- RESP PCR PAN NOT DETECTED; B. PERTUSSIS- RESP PCR PANEL NOT DETECTED; C. PNEUMONIAE- RESP PCR PANEL NOT DETECTED; CORONAVIRUS 229E-RESP PCR NOT DETECTED; CORONAVIRUS HKU1-RESP PCR NOT DETECTED; CORONAVIRUS NL63-RESP PCR NOT DETECTED; CORONAVIRUS OC43-RESP PCR NOT DETECTED; HUMAN METAPNEUMOVIRUS NOT DETECTED; INFLUENZA A- RESP PCR PANEL NOT DETECTED; INFLUENZA B - RESP PCR PANEL NOT DETECTED; M. PNEUMONIAE- RESP PCR PANEL NOT DETECTED; PARAINFLUENZA VIRUS 1 NOT DETECTED; PARAINFLUENZA VIRUS 2 NOT DETECTED; PARAINFLUENZA VIRUS 3 NOT DETECTED; PARAINFLUENZA VIRUS 4 NOT DETECTED; RHINOVIRUS/ENTEROVIRUS NOT DETECTED; RSV- RESP PCR PANEL NOT DETECTED
[2021-08-30 15:09] LABS: SARS-CoV-2 -RESP PCR PANEL DETECTED
[2021-08-30 18:12] VITALS: BP 213/101
== END 2021-08-30 18:14 | disposition home or self-care (01) ==
LOC: ED 13:01
DX: U07.1 COVID-19 (principal); E11.22 Type 2 diabetes mellitus with diabetic chronic kidney disease; I13.2 Hypertensive heart and chronic kidney disease with heart failure and with stage 5 chronic kidney disease, or end stage renal disease; N18.6 End stage renal disease; Z99.2 Dependence on renal dialysis; Z79.84 Long term (current) use of oral hypoglycemic drugs
CPT/HCPCS: 0202U; 36415; 80053; 83690; 85025; 94640; 99283; 99284

== ENCOUNTER 2021-08-30 18:05 | Outpatient (CLI) | payer MEDICARE, MEDICAID | END 2021-08-30 18:06 | disposition home or self-care (01) | LOC: EMS 18:05 | PROVIDERS: ATTEND Emergency Medicine | DX: U07.1 COVID-19 (principal); Z99.81 Dependence on supplemental oxygen; Z99.2 Dependence on renal dialysis | CPT/HCPCS: A0425; A0428 ==

== ENCOUNTER 2021-08-31 16:36 | Outpatient (CLI) | payer MEDICARE, MEDICAID | END 2021-08-31 16:37 | disposition short-term general hospital (02) | LOC: EMS 16:36 | DX: U07.1 COVID-19 (principal); R06.02 Shortness of breath; N19 Unspecified kidney failure; Z99.2 Dependence on renal dialysis; R53.1 Weakness; R53.81 Other malaise; R60.9 Edema, unspecified; R10.817 Generalized abdominal tenderness | CPT/HCPCS: A0425; A0429 ==

== ENCOUNTER 2021-09-14 06:14 | Outpatient (CLI) | payer MEDICARE, MEDICAID | END 2021-09-14 06:15 | disposition short-term general hospital (02) | LOC: EMS 06:14 | DX: R60.0 Localized edema (principal); R53.83 Other fatigue; R53.1 Weakness; R09.81 Nasal congestion; R06.2 Wheezing | CPT/HCPCS: A0425; A0429 ==